=== PATIENT | female | born 1935 | race Caucasian/White ===

== ENCOUNTER 2018-05-02 16:08 | Observation (INO) | payer OTHER ==
[~2018-05-02] VITALS: Ht 149.9 cm; Wt 61.7 kg
[2018-05-02] MEDS ORDERED: MORPHINE SULFATE INJ 4 MG/ML INJ IV STA (16:16)
[2018-05-02] MEDS ORDERED: ONDANSETRON HCL INJ 2 MG/ML VIAL IV STA (16:16)
[2018-05-02] MEDS ORDERED: TETANUS/DIPHTHERIA TOX ADULT 0.5 ML SYR IM ONE (17:00)
[2018-05-02 17:14] LABS: BASOPHILS # (AUTO) 0.1 (0.0-0.1); BASOPHILS % 0.9 % (0.0-1.0); EOSINOPHILS # (AUTO) 0.3 (0.0-0.4); EOSINOPHILS % 2.4 % (0.0-6.0); LYMPHOCYTES # (AUTO) 3.1 (1.0-3.2); LYMPHOCYTES % 27.2 % (18.0-39.1); MEAN CORPUSCULAR HEMOGLOBIN 29.4 pg (28-32); MEAN CORPUSCULAR HGB CONC 31.6 g/dL (31-35); MEAN CORPUSCULAR VOLUME 93.1 fL (81-99); MONOCYTES # (AUTO) 0.9 (0.2-0.8); MONOCYTES % 7.5 % (4.4-11.3); NEUTROPHILS # (AUTO) 7.1 (2.1-6.9); NEUTROPHILS % 61.5 % (38.7-80.0); PLATELET COUNT 248 x10e3/uL (140-360); RED BLOOD COUNT 4.08 x10e6/uL (3.6-5.1); RED CELL DISTRIBUTION WIDTH 12.8 % (11.7-14.4)
[2018-05-02 17:20] LABS: INR 0.95; PARTIAL THROMBOPLASTIN TIME 26.4 seconds (23.8-35.5); PROTHROMBIN TIME 13.5 seconds (11.9-14.5)
[2018-05-02 17:26] LABS: ALBUMIN 3.5 g/dL (3.5-5.0); ALBUMIN/GLOBULIN RATIO 0.9 (0.8-2.0); ANION GAP 17.5 mmol/L (8-16); CALCIUM 9.2 mg/dL (8.4-10.2); CREATININE, SERUM 0.89 mg/dL (0.57-1.11); POTASSIUM 4.5 mmol/L (3.5-5.1)
[2018-05-02] MEDS ORDERED: MORPHINE SULFATE 2 MG/ML SYR IV ONE (17:30)
--- NOTE | 2018-05-02 18:18 | Diagnostic Imaging Report ---
KNEE LEFT THREE VIEWS - 3 views HISTORY: Pain. COMPARISON: None available. FINDINGS: Bones: No acute displaced fracture. Osseous alignment is within normal limits. Joints: Moderate tricompartmental degenerative changes with joint space narrowing and osteophytic spurring. Bilateral meniscal calcification. Soft tissues: The soft tissues appear unremarkable. IMPRESSION: Moderate degenerative changes in the left knee. Signed by: Dr. Umer Dangelo M.D. on 05/02/2018 6:15 PM
--- NOTE | 2018-05-02 18:18 | Diagnostic Imaging Report ---
LOWER LEG LEFT - 2 views HISTORY: Pain. COMPARISON: None available. FINDINGS: Bones: No acute displaced fracture. Osseous alignment is within normal limits. Joints: Mild to moderate degenerative changes in the knee. Soft tissues: Mild soft tissue swelling of the left leg. IMPRESSION: 1. Mild soft tissue swelling of the left leg. 2. No fractures. 3. Moderate degenerative changes of the left knee. Signed by: Dr. Umer Dangelo M.D. on 05/02/2018 6:15 PM
--- NOTE | 2018-05-02 18:19 | Diagnostic Imaging Report ---
HAND 3+ VIEWS LEFT - 3 views HISTORY: Pain. COMPARISON: None available. FINDINGS: Bones: No acute displaced fracture. Osseous alignment is within normal limits. Joints: Severe degenerative changes in the DIP and PIP joints. Moderate to severe degenerative changes in the first MCP joint. Mild to moderate degenerative changes in the MCP joints. Moderate degenerative changes in the radiocarpal joint. Moderate degenerative changes in the carpal carpal joints. Severe degenerative changes in the first carpometacarpal joint. Soft tissues: The soft tissues appear unremarkable. 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 Signed by: Dr. Umer Dangelo M.D. on 05/02/2018 6:16 PM
--- NOTE | 2018-05-02 18:20 | Diagnostic Imaging Report ---
HAND 3+ VIEWS RIGHT - 3 views HISTORY: Pain. COMPARISON: None available. FINDINGS: Bones: No acute displaced fracture. Multifocal subluxations related degenerative changes. Joints: Severe degenerative changes in the DIP and PIP joints and the first MCP joint. Moderate degenerative changes in the MCP joints. Moderate degenerative changes in the radiocarpal and carpocarpal joints. Severe degenerative changes at the first carpometacarpal joint. Soft tissues: The soft tissues appear unremarkable. IMPRESSION: Severe degenerative changes in the right hand as described above. Signed by: Dr. Umer Dangelo M.D. on 05/02/2018 6:17 PM
--- NOTE | 2018-05-02 18:22 | Diagnostic Imaging Report ---
ELBOW LEFT COMPLETE - 2 views HISTORY: Pain. COMPARISON: None available. FINDINGS: Bones: No acute displaced fracture. Osseous alignment is within normal limits. Calcification adjacent to the lateral epicondyle. Joints: The joint spaces are well-maintained. Soft tissues: Diffuse swelling of the left upper arm. IMPRESSION: 1. No acute radiographic abnormality. 2. Calcific lateral epicondylitis. 3. Diffuse swelling of the left upper arm. Correlate for contusion. Signed by: Dr. Umer Dangelo M.D. on 05/02/2018 6:19 PM
--- NOTE | 2018-05-02 18:23 | Diagnostic Imaging Report ---
PELVIS AP 1-2 VIEWS - 1 views HISTORY: Pain. COMPARISON: None available. FINDINGS: Bones: No acute displaced fracture. Osseous alignment is within normal limits. Joints: Severe degenerative changes of bilateral SI joints with fusion. Partially visualized lower lumbar spine with marked severe degenerative changes. Moderate degenerative changes in bilateral hip joints. Pubis symphysis is not well visualized and likely represents vision. Soft tissues: The soft tissues appear unremarkable. Large amount of stool in the rectum and sigmoid colon. IMPRESSION: 1. Severe degenerative changes in the pelvis with bony fusion. 2. Moderate changes in bilateral hips. Signed by: Dr. Umer Dangelo M.D. on 05/02/2018 6:20 PM
--- NOTE | 2018-05-02 18:48 | Diagnostic Imaging Report ---
History:Fall, hit the head Comparison studies:None Technique: Axial images were obtained from the skull base to the vertex. Coronal and sagittal images reconstructed from the axial data. Intravenous contrast: None Dose modulation, iterative reconstruction, and/or weight based adjustment of the mA/kV was utilized to reduce the radiation dose to as low as reasonably achievable. Findings: Scalp/skull: No abnormalities. Extra-axial spaces: No masses. No fluid collections. Brain sulci: Mildly prominent. Ventricles: Mild compensatory dilatation. No hydrocephalus. Parenchyma: Scattered hypodensities in the supratentorial white matter are small vessel ischemic changes. Chronic. No masses, hemorrhage, acute or chronic cortical vascular insults. Sellar/suprasellar region: No abnormalities. Craniocervical junction: Patent foramen magnum. No Chiari one malformation. Incidental findings: Atherosclerotic calcifications in the carotid siphons . Bilateral cataract surgery changes. Impression: No acute abnormalities. Chronic findings: 1. Mild generalized volume loss. 2. Mild to moderate supratentorial white matter small vessel ischemic changes. Signed by: DR Sivakumar Dhillon M.D. on 05/02/2018 6:45 PM
--- NOTE | 2018-05-02 19:17 | Diagnostic Imaging Report ---
History: Fall, hit head Comparison studies: None Technique: Axial images were obtained through the cervical region.. Coronal and sagittal images reconstructed from the axial data.. Intravenous contrast: None Findings: Fractures: None. Soft tissues: No gross abnormalities. Atlantoaxial articulation: Degenerative changes without acute abnormality. Alignment: Normal lordosis. No scoliosis. Cervicomedullary junction: No abnormalities. The foramen magnum is patent. Vertebrae: No infection or neoplasm. Degenerative changes: Obliterated intervertebral disc and endplate sclerotic changes from C3 through C6. Posterior disc osteophyte complexes at C3-4-5 and C5-results in mild canal stenosis. Bilateral uncinate process hypertrophy and facet hypertrophy results in moderate bilateral foraminal narrowing at C4-5 and C5-6. IMPRESSION: 1. No acute cervical spine abnormalities. 2. Cannot exclude ligament, spinal cord and or vascular abnormalities on the basis of this examination. Signed by: DR Sivakumar hDillon M.D. on 05/02/2018 7:14 PM
[2018-05-02] MEDS ORDERED: ONDANSETRON HCL INJ 2 MG/ML VIAL IV PRN (21:45)
[2018-05-02] MEDS ORDERED: MORPHINE SULFATE 2 MG/ML SYR IV PRN (21:45)
[2018-05-02] MEDS: ACETAMINOPHEN 325 MG TAB PO SCH (22:00)
[2018-05-02 22:40] VITALS: BP 121/59
[2018-05-03] VITALS (8 sets, daily range): BP systolic 109–167; BP diastolic 53–68
[2018-05-03] MEDS ORDERED: LISINOPRIL10 MG PO (04:02)
[2018-05-03] MEDS: ACETAMINOPHEN 325 MG TAB PO SCH (06:32)
[2018-05-03] MEDS: CEPHALEXIN 500 MG CAP PO SCH ×3 (08:53→18:20)
[2018-05-03] MEDS ORDERED: ACETAMINOPHEN 325 MG TAB PO PRN (09:00)
[2018-05-03] MEDS ORDERED: ONDANSETRON HCL INJ 2 MG/ML VIAL IV PRN (09:00)
--- NOTE | 2018-05-03 11:54 | History and Physical ---
PCP: Dr. Snow Steen CHIEF COMPLAINT: Status post fall on the left side with hematoma to the left leg and left upper extremity. HISTORY: Patient is an 83-year-old female who was carrying groceries, tripped and fell to her left side. Multiple imaging done including a brain CT, cervical spine CT, elbow x-rays, hand x-ray, knee x-ray, lower extremity x-rays, and shows there is no signs of fractures. The patient states that she does have a hematoma to the left lower extremity below the knee area and hematoma above the elbow area. The patient is stable. She is comfortable. Pain controlled. Observation. She does have some blistering to the left lower extremity along the avery area. The patient is stable. PAST MEDICAL HISTORY: The patient has hypertension. PAST SURGICAL HISTORY: Noncontributory. SOCIAL HISTORY: The patient does not smoke or use alcohol. No recreational drugs. She lives with her grandchildren. ALLERGIES: CODEINE. HOME MEDICATIONS: Lisinopril. REVIEW OF SYSTEMS: Left lower extremity pain. Left upper extremity pain. PHYSICAL EXAMINATION VITAL SIGNS: Temperature is 97, blood pressure is 109/53, pulse rate 75, respirations 18. GENERAL: The patient is not in acute distress. He is awake. HEENT: Normocephalic, atraumatic and anicteric. NECK: Supple grossly. PULMONARY: Diminished breath without any wheezing or rales. CARDIOVASCULAR: S1 and S2. Regular rate and rhythm. ABDOMEN: Soft. Positive bowel sounds. Grossly nontender and no distention. EXTREMITIES: Left lower extremity swelling below the knee area and also some blistering. Hematoma. Left upper extremity hematoma above the elbow area. There is no sign of immediate infection. NEUROLOGIC: No focal deficit. LABORATORY: Sodium 137, potassium 4.5, chloride 102, bicarb 22, BUN 17, creatinine 0.9, glucose is 130. WBC 11.5, hemoglobin 12, hematocrit 38, and platelets is 248,000. IMPRESSION 1. Status post fall with left lower extremity hematoma and left upper extremity hematoma. 2. Pain. 3. Left lower extremity blister. PLAN: Continue to observe the patient. Place O2. Give the patient Ceftin 500 mg 3 times a day in anticipation that there may be an infection. The patient is stable. She will remain in observation. Obtain home health. Will send the patient home within 24-48 hours. Job#: [id number] RI
[2018-05-04] VITALS: BP 123/69
[2018-05-04] MEDS: CEPHALEXIN 500 MG CAP PO SCH ×2 (02:19→09:00)
[2018-05-04 04:00] VITALS: BP 146/63
[2018-05-04 07:51] VITALS: BP 166/68
[2018-05-04 08:30] VITALS: BP 166/68
[2018-05-04] MEDS ORDERED: LISINOPRIL 10 MG TAB PO NR (08:45)
[2018-05-04] MEDS ORDERED: KEFLEX500 MG PO (09:38)
[2018-05-04] MEDS ORDERED: MOBIC7.5 MG PO (09:39)
[2018-05-04] MEDS ORDERED: ZOFRAN ODT4 MG SL (09:41)
--- NOTE | 2018-05-04 16:42 | Discharge Summary ---
PRIMARY CARE PHYSICIAN: Dr. Snow Steen. FINAL DIAGNOSES: 1. Status post accidental fall. 2. Left leg hematoma below the knee area and left upper extremity hematoma on falling on the left side. 3. Baseline hypertension. 4. Pain much improved. SUMMARY: This is an 83-year-old female apparently accidentally fell carrying her groceries. She suffered some bruises and hematoma to the left lower extremity below the knee area mostly in the anterior leg area along with the left upper extremity above the elbow. X-ray and imaging negative for any fractures. The patient is stable. There is some blister to the lower extremity. The patient started on Keflex. Pain medication. The patient is stable and discharged home today with the following medications: Keflex 500 mg t.i.d. for 7 days. Mobic 7.5 mg b.i.d. for pain. Zofran ODT 4 mg sublingual q.4 hours as needed for nausea and vomiting. Patient is stable and discharged home today. Follow up with primary care physician next week. Job#: [id number]
== END 2018-05-04 10:43 | disposition home health service (06) ==
LOC: ER 16:08 → ERHOLD 21:55 → MED/SURG 22:35
PROVIDERS: ADMIT Internal Medicine; ATTEND Internal Medicine
DX: S80.12XA Contusion of left lower leg, initial encounter (principal); S50.01XA Contusion of right elbow, initial encounter; S00.83XA Contusion of other part of head, initial encounter; S71.132A Puncture wound without foreign body, left thigh, initial encounter; S50.312A Abrasion of left elbow, initial encounter; S60.511A Abrasion of right hand, initial encounter; W01.0XXA Fall on same level from slipping, tripping and stumbling without subsequent striking against object, initial encounter; Y93.01 Activity, walking, marching and hiking; Y92.018 Other place in single-family (private) house as the place of occurrence of the external cause; I10 Essential (primary) hypertension
CPT/HCPCS: 36415; 70450; 72125; 72170; 73080; 73130 ×2; 73562; 73590; 80053; 85025; 85610; 85730; 90471; 90714; 97116; 97161; 99284; G0378 ×3; G8978; G8979; G8980; J2270 ×3; J2405 ×2

== ENCOUNTER 2018-11-19 13:57 | Emergency (ER) | payer OTHER ==
[~2018-11-19] VITALS: Ht 149.9 cm; Wt 61.7 kg
[~2018-11-19 13:57] MED LIST: KEFLEX500 MG PO; LISINOPRIL10 MG PO; MOBIC7.5 MG PO; ZOFRAN ODT4 MG SL
--- OUTSIDE RECORDS SUMMARY | 2018-11-19 14:01 | XMS REPORT | Summary of Care ---
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 terminal computer operator (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) 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 therapy (Final) - Diverticulosis of large intestine without perforation or abscess without bleedin g (Final) - 03/31/18 Left lower quadrant pain (Final) - Nausea (Final) - Type 2 diabetes mellitus without complications (Final) - Essential (primary) hypertension (Final) - Unspecified osteoarthritis, unspecified site (Final) - Scoliosis, unspecified (Final) - Abdominal aortic aneurysm, without rupture (Final) - Low back pain (Final) - Other chronic pain (Final) - Major depressive disorder, single episode, unspecified (Final) - Gastro-esophageal reflux disease without esophagitis (Final) - Discharge Disposition: Home or Self Care Attending Physician: Bria Soares MD Vital Signs 1 2 3 Most recent to oldest [Reference Range]: 149.86 cm (03/25/18 3:48 PM) Height 98.6 DegF (03/25/18 10:57 PM) 98.9 DegF (03/25/18 9:40 PM) 98.5 DegF (03/25/18 3:48 PM) Temperature Oral [96.4-99.1 DegF] 151/68 mmHg *HI* (03/25/18 11:41 PM) 173/66 mmHg *HI* (03/25/18 11:40 PM) 198/76 mmHg *HI* (03/25/18 10:57 PM) Blood Pressure [90-140/60-90 mmHg] 20 BRMIN (03/25/18 11:41 PM) 18 BRMIN (03/25/18 11:40 PM) 20 BRMIN (03/25/18 10:57 PM) Respiratory Rate [14-20 BRMIN] 80 bpm (03/25/18 11:41 PM) 74 bpm (03/25/18 11:40 PM) 74 bpm (03/25/18 10:57 PM) Peripheral Pulse Rate [60-100 bpm] 59.091 kg (03/25/18 3:48 PM) Weight 26.31 m2 (03/25/18 3:48 PM) Body Mass Index Problem List Condition Effective Dates Status Health Status Informant Acid Active reflux(Confirmed) Anemia(Confirmed) Active Anxiety(Confirmed) Active Arthritis(Confirmed) Active Breast Resolved cancer(Confirmed) Degenerative disc Active disease(Confirmed) Depression(Confirmed Active ) Diabetes Active mellitus(Confirmed) HTN Resolved (hypertension)(Confi rmed) Scoliosis(Confirmed) Active Allergies, Adverse Reactions, Alerts Substance Reaction Severity Status sulfa drugs Active codeine Active Talwin Active Medications hydrALAZINE 5 mg, 0.25 mL, Route: IV, Drug form: INJ, ONCE, Dosing Weight 59.091, kg, Start date: 03/25/18 23:21:00 CDT, Stop date: 03/25/18 23:21:00 CDT Notes: (Same as: Apresoline)Push over 5 minutes Start Date: 03/25/18 Stop Date: 03/26/18 Status: Completed hydrALAZINE 5 mg, 0.25 mL, Route: IV, Drug form: INJ, ONCE, Dosing Weight 59.091, kg, Start date: 03/25/18 22:30:00 CDT, Stop date: 03/25/18 22:30:00 CDT Notes: (Same as: Apresoline)Push over 5 minutes Start Date: 03/25/18 Stop Date: 03/25/18 Status: Completed Motrin 600 mg, Route: PO, Drug form: TAB, ONCE, Dosing Weight 59.091, kg, Priority: STA T, Start date: 03/25/18 23:01:00 CDT, Stop date: 03/25/18 23:01:00 CDT Start Date: 03/25/18 Stop Date: 03/25/18 Status: Completed Saline Flush 0.9% 10 mL, Route: IVP, Drug Form: INJ, Dosing Weight 58.182, kg, PRN, PRN Line Flush , Start date: 03/25/18 15:52:00 CDT, Duration: 30 day, Stop date: 04/24/18 15:51 :00 CDT Notes: (Same as: BD Posiflush) Start Date: 03/25/18 Stop Date: 03/26/18 Status: Discontinued Tylenol 650 mg, Route: PO, ONCE, Dosing Weight 59.091, kg, Start date: 03/25/18 23:02:00 CDT, Stop date: 03/25/18 23:02:00 CDT Start Date: 03/25/18 Stop Date: 03/25/18 Status: Completed Results ELECTROLYTES Most recent to 1 oldest [Reference Range]: Sodium Lvl [135-145 142 mEq/L mEq/L] (03/25/18 4:11 PM) Potassium Lvl 3.9 mEq/L [3.5-5.1 mEq/L] (03/25/18 4:11 PM) Chloride Lvl [95-109 102 mEq/L mEq/L] (03/25/18 4:11 PM) CO2 [24-32 mEq/L] 32 mEq/L (03/25/18 4:11 PM) AGAP [10.0-20.0 11.9 mEq/L mEq/L] (03/25/18 4:11 PM) CHEM PANEL Most recent to 1 oldest [Reference Range]: Creatinine Lvl 1.06 mg/dL [0.50-1.40 mg/dL] (03/25/18 4:11 PM) eGFR 48 mL/min/1.73m2 1 *NA* (03/25/18 4:11 PM) BUN [7-22 mg/dL] 14 mg/dL (03/25/18 4:11 PM) B/C Ratio [6-25] 13 (03/25/18 4:11 PM) Glucose Lvl [70-99 146 mg/dL mg/dL] *HI* (03/25/18 4:11 PM) Total Protein 7.9 g/dL [6.4-8.4 g/dL] (03/25/18 4:11 PM) Albumin Lvl [3.5-5.0 3.5 g/dL g/dL] (03/25/18 4:11 PM) Globulin [2.7-4.2 4.4 g/dL g/dL] *HI* (03/25/18 4:11 PM) A/G Ratio [0.7-1.6] 0.8 (03/25/18 4:11 PM) Calcium Lvl 8.5 mg/dL [8.5-10.5 mg/dL] (03/25/18 4:11 PM) ALT [0-65 unit/L] 18 unit/L (03/25/18 4:11 PM) AST [0-37 unit/L] 20 unit/L (03/25/18 4:11 PM) Alk Phos [39-136 84 unit/L unit/L] (03/25/18 4:11 PM) Bili Total [0.2-1.3 0.4 mg/dL mg/dL] (03/25/18 4:11 PM) 1Result Comment: The eGFR is calculated using the CKD-EPI formula. In most young, healthy individuals the eGFR will be >90 mL/min/1.73m2. The eGFR declines with age. An eGFR of 60-89 may be normal in some populations, particularly the elderly, for whom the CKD-EPI formula has not been extensively validated. Use of the eGFR is not recommended in the following populations: Individuals with unstable creatinine concentrations, including patients and those with serious co-morbid conditions. Patients with extremes in muscle mass or diet. The data above are obtained from the National Kidney Disease Education Program ( NKDEP) which additionally recommends that when the eGFR is used in patients with extremes of body mass index for purposes of drug dosing, the eGFR should be mul tiplied by the estimated BMI. CARDIAC ENZYMES Most recent to 1 oldest [Reference Range]: Total CK [12-191 79 unit/L unit/L] (03/25/18 4:11 PM) Troponin-I <0.02 ng/mL [0.00-0.40 ng/mL] (03/25/18 4:11 PM) URINE AND STOOL Most recent to 1 oldest [Reference Range]: UA Turbidity [Clear] Clear (03/25/18 10:47 PM) UA Color [Yellow] Light Yellow (03/25/18 10:47 PM) UA pH [5.0-8.0] 7.0 (03/25/18 10:47 PM) UA Spec Grav <=1.005 [<=1.030] *NA* (03/25/18 10:47 PM) UA Glucose Negative [Negative] (03/25/18 10:47 PM) UA Blood [Negative] Moderate *ABN* (03/25/18 10:47 PM) UA Ketones Negative [Negative] *NA* (03/25/18 10:47 PM) UA Protein Negative [Negative] (03/25/18 10:47 PM) UA Urobilinogen 0.2 EU/dL [0.1-1.0 EU/dL] (03/25/18 10:47 PM) UA Bili [Negative] Negative *NA* (03/25/18 10:47 PM) UA Leuk Est Small [Negative] *ABN* (03/25/18 10:47 PM) UA Nitrite Negative [Negative] (03/25/18 10:47 PM) UA WBC [0-5 /HPF] <1 /HPF (03/25/18 10:47 PM) UA RBC [0-2 /HPF] 3 /HPF *HI* (03/25/18 10:47 PM) UA Sq Epi [Few /LPF] Occasional /LPF *NA* (03/25/18 10:47 PM) HEMATOLOGY Most recent to 1 oldest [Reference Range]: WBC [3.7-10.4 K/CMM] 9.4 K/CMM (03/25/18 4:11 PM) RBC [4.20-5.40 4.59 M/CMM M/CMM] (03/25/18 4:11 PM) Hgb [12.0-16.0 g/dL] 13.8 g/dL (03/25/18 4:11 PM) Hct [36.0-48.0 %] 41.7 % (03/25/18 4:11 PM) MCV [80.0-98.0 fL] 91.0 fL (03/25/18 4:11 PM) MCH [27.0-31.0 pg] 30.1 pg (03/25/18 4:11 PM) MCHC [32.0-36.0 33.1 g/dL g/dL] (03/25/18 4:11 PM) RDW [11.5-14.5 %] 14.0 % (03/25/18 4:11 PM) MPV [7.4-10.4 fL] 7.6 fL (03/25/18 4:11 PM) Platelet [133-450 202 K/CMM K/CMM] (03/25/18 4:11 PM) Segs [45.0-75.0 %] 64.9 % (03/25/18 4:11 PM) Lymphocytes 25.0 % [20.0-40.0 %] (03/25/18 4:11 PM) Monocytes [2.0-12.0 7.7 % %] (03/25/18 4:11 PM) Eosinophils [0.0-4.0 1.5 % %] (03/25/18 4:11 PM) Basophils [0.0-1.0 0.9 % %] (03/25/18 4:11 PM) Neutrophils # 6.1 K/CMM [1.5-8.1 K/CMM] (03/25/18 4:11 PM) Lymphocytes # 2.4 K/CMM [1.0-5.5 K/CMM] (03/25/18 4:11 PM) Monocytes # [0.0-0.8 0.7 K/CMM K/CMM] (03/25/18 4:11 PM) Eosinophils # 0.1 K/CMM [0.0-0.5 K/CMM] (03/25/18 4:11 PM) Basophils # [0.0-0.2 0.1 K/CMM K/CMM] (03/25/18 4:11 PM) Microbiology Reports TEST: Culture: Urine STATUS: Auth (Verified) BODY SITE: SOURCE: Urine, Clean Catch COLLECTED DATE/TIME: 03/25/18 10:47 PM FINAL REPORT 10,000 - 50,000 CFU/mL Skin Pita Immunizations Given and Recorded Vaccine Date Status Refusal Reason pneumococcal 23-valent vaccine 11/06/14 Given Procedures Procedure Date Related Diagnosis Body Site Status Abdominal hysterectomy Completed Bilateral radical mastectomy1 Completed Bunionectomy Completed Cholecystectomy Completed Partial shoulder replacement Completed 1right Social History Social History Type Response Alcohol Never Smoking Status Never smoker; Exposure to Tobacco Smoke None; Cigarette Smoking Last 365 Days No; Reg Smoking Cessation Counseling No entered on: 05/12/18 Assessment and Plan No data available for this section
--- OUTSIDE RECORDS SUMMARY | 2018-11-19 14:01 | XMS REPORT | Summary of Care ---
Author Author [facility] [place] Organization [facility] [place] Address Unknown Phone Unavailable Encounter HQ Keegan_gee(FIN) [id number] Date(s): 05/19/17 - 05/19/17 [facility] [place] [address] [place] [address] [phone] Discharge Disposition: Home or Self Care Attending Physician: Lisa Nielsen MD Vital Signs No data available for this section Problem List Condition Effective Dates Status Health Status Informant Acid Active reflux(Confirmed) Anemia(Confirmed) Active Anxiety(Confirmed) Active Arthritis(Confirmed) Active Breast Resolved cancer(Confirmed) Degenerative disc Active disease(Confirmed) Depression(Confirmed Active ) Diabetes Active mellitus(Confirmed) HTN Resolved (hypertension)(Confi rmed) Scoliosis(Confirmed) Active Allergies, Adverse Reactions, Alerts Substance Reaction Severity Status codeine Active sulfa drugs Active Talwin Active Medications No data available for this section Results No data available for this section Immunizations Given and Recorded Vaccine Date Status Refusal Reason pneumococcal 23-valent vaccine 11/06/14 Given Procedures Procedure Date Related Diagnosis Body Site Abdominal hysterectomy Bilateral radical mastectomy1 Bunionectomy Cholecystectomy Partial shoulder replacement 1right Social History Social History Type Response Alcohol Never Smoking Status Never smoker; Exposure to Tobacco Smoke None; Cigarette Smoking Last 365 Days No; Reg Smoking Cessation Counseling No Assessment and Plan No data available for this section
--- OUTSIDE RECORDS SUMMARY | 2018-11-19 14:01 | XMS REPORT | Summary of Care ---
Author Author [facility] Organization [facility] Address Unknown Phone Unavailable Encounter PEMA Yousif(ANAMIKA) [id number] Date(s): 04/13/15 - 05/02/15 [facility] [address] [place] [address]- Discharge Disposition: Home Attending Physician: Kaitlynn Auguste MD Referring Physician: Kaitlynn Auguste MD Vital Signs Most recent to 1 2 oldest [Reference Range]: Height 157.4 cm 157.4 cm (04/12/15 3:30 PM) (04/10/15 1:24 PM) Most recent to 1 2 oldest [Reference Range]: Temperature Oral 98.2 DegF [96.4-99.1 DegF] (04/13/15 2:00 PM) Most recent to 1 2 oldest [Reference Range]: Blood Pressure 146/80 mmHg [90-140/60-90 mmHg] *HI* (04/13/15 2:00 PM) Most recent to 1 2 oldest [Reference Range]: Respiratory Rate 18 BRMIN [14-20 BRMIN] (04/13/15 2:00 PM) Most recent to 1 2 oldest [Reference Range]: Peripheral Pulse 72 bpm Rate [60-100 bpm] (04/13/15 2:00 PM) Most recent to 1 2 oldest [Reference Range]: Weight 57.7 kg 57.7 kg (04/12/15 3:30 PM) (04/10/15 1:24 PM) Most recent to 1 2 oldest [Reference Range]: Body Mass Index 23.29 m2 23.29 m2 (04/12/15 3:30 PM) (04/10/15 1:24 PM) Problem List Condition Effective Dates Status Health Status Informant Acid Active reflux(Confirmed) Arthritis(Confirmed) Active Breast Resolved cancer(Confirmed) Degenerative disc Active disease(Confirmed) Depression(Confirmed Active ) Scoliosis(Confirmed) Active Allergies, Adverse Reactions, Alerts Substance Reaction Severity Status codeine Active sulfa drugs Active Talwin Active Medications Prolia 60 mg, 1 mL, Route: SUB-Q, Drug form: SOLN, ONCALL, Start date: 04/13/15 11:30:0 0, Duration: 1 day, Stop date: 04/14/15 11:29:00 Notes: Same as: ProliaNon Formulary MEDICATION WASTE Product Size: 60 m gProduct Wasted: ___ mg Start Date: 04/13/15 Stop Date: 04/13/15 Status: Completed Results No data available for this section Immunizations Vaccine Date Refusal Reason pneumococcal 23-valent vaccine 11/06/14 Procedures Procedure Date Related Diagnosis Body Site Abdominal hysterectomy Bilateral radical mastectomy1 Bunionectomy Cholecystectomy Partial shoulder replacement 1right Social History Social History Type Response Smoking Status Never smoker; Exposure to Tobacco Smoke None; Cigarette Smoking Last 365 Days No; Reg Smoking Cessation Counseling No Assessment and Plan No data available for this section
--- OUTSIDE RECORDS SUMMARY | 2018-11-19 14:01 | XMS REPORT | Summary of Care ---
Author Organization Unknown Address Unknown Phone Unavailable Encounter [facility] Vidyar_gee(FIN) [id number] Date(s): 10/18/14 - 10/18/14 [facility] [place] [address] [place], [place] [address] [phone] Discharge Disposition: Home Physician Attending: Kaitlynn Auguste MD Vital Signs No data available for this section Problem List Condition Effective Dates Status Health Status Informant Acid Active reflux(Confirmed) Arthritis(Confirmed) Resolved Breast Resolved cancer(Confirmed) Degenerative disc Active disease(Confirmed) Depression(Confirmed Active ) Scoliosis(Confirmed) Resolved Allergies, Adverse Reactions, Alerts Substance Reaction Severity Status codeine Active sulfa drugs Active Talwin Active Medications No data available for this section Results No data available for this section Immunizations No data available for this section Procedures No data available for this section Social History Social History Type Response Smoking Status Never smoker; Exposure to Tobacco Smoke None; Cigarette Smoking Last 365 Days No; Reg Smoking Cessation Counseling No Assessment and Plan No data available for this section
--- OUTSIDE RECORDS SUMMARY | 2018-11-19 14:01 | XMS REPORT | Summary of Care ---
Author Organization Unknown Address Unknown Phone Unavailable Encounter HQ Benja(ANAMIKA) [id number] Date(s): 11/05/14 - 11/12/14 [facility] [address] [place] [address]- [phone] Discharge Diagnosis: Acute hip pain Discharge Diagnosis: Acute back pain Discharge Disposition: Home Physician Attending: Gayathri Medina MD Physician Admitting: Gayathri Medina MD Vital Signs 1 2 3 Most recent to oldest [Reference Range]: 157.48 cm (11/06/14 5:08 PM) 157.48 cm (11/05/14 8:22 PM) Height 98.5 DegF (11/12/14 7:55 AM) 98.5 DegF (11/12/14 4:00 AM) 99 DegF (11/12/14 12:00 AM) Temperature Oral [96.4-99.1 DegF] 142/81 mmHg *HI* (11/12/14 7:55 AM) 150/80 mmHg *HI* (11/12/14 4:00 AM) 105/68 mmHg (11/12/14 12:00 AM) Blood Pressure [90-140/60-90 mmHg] 18 BRMIN (11/12/14 7:55 AM) 18 BRMIN (11/12/14 4:00 AM) 18 BRMIN (11/12/14 12:00 AM) Respiratory Rate [14-20 BRMIN] 79 bpm (11/12/14 7:55 AM) 74 bpm (11/12/14 4:00 AM) 68 bpm (11/12/14 12:00 AM) Peripheral Pulse Rate [60-100 bpm] 58.352 kg (11/06/14 5:08 PM) 57.727 kg (11/05/14 8:22 PM) Weight 23.53 m2 (11/06/14 5:08 PM) 23.28 m2 (11/05/14 8:22 PM) Body Mass Index Problem List Condition Effective Dates Status Health Status Informant Acid Active reflux(Confirmed) Arthritis(Confirmed) Active Breast Resolved cancer(Confirmed) Degenerative disc Active disease(Confirmed) Depression(Confirmed Active ) Scoliosis(Confirmed) Active Allergies, Adverse Reactions, Alerts Substance Reaction Severity Status codeine Active sulfa drugs Active Talwin Active Medications acetaminophen-hydrocodone 325 mg-10 mg oral tablet 1 tab, Route: PO, Dosing Weight 57.727, kg, ONCE, STAT, Start date: 11/06/14 0:3 9:00, Stop date: 11/06/14 0:39:00 Start Date: 11/06/14 Stop Date: 11/06/14 Status: Completed ALPRAZOLam 0.25 mg, 1 tab, Route: PO, Drug form: TAB, Bedtime, Dosing Weight 57.727, kg, CA N as needed for anxiety, Start date: 11/06/14 8:56:00, Duration: 30 day, Stop da te: 12/06/14 8:55:00 Notes: With food or milk(Same as: Xanax) Start Date: 11/06/14 Stop Date: 11/12/14 Status: Discontinued Ancef 1 gm, Route: IVPB, ONCE, Dosing Weight 58.352, kg, Start date: 11/10/14 12:05:00 , Duration: 1 doses or times, Stop date: 11/10/14 12:05:00 Start Date: 11/10/14 Stop Date: 11/10/14 Status: Completed CeleBREX 100 mg, 1 cap, Route: PO, Drug form: CAP, Daily, Dosing Weight 57.727, kg, Start date: 11/06/14 9:00:00, Duration: 30 day, Stop date: 12/05/14 9:00:00 Notes: NSAID. Please check indication. Not for seizure. (Same As: CeleBREX) Start Date: 11/06/14 Stop Date: 11/12/14 Status: Discontinued CeleBREX 100 mg oral capsule 100 mg=1 cap, PO, Daily, # 180 cap, 0 Refill(s) Start Date: 11/06/14 Status: Ordered diphenhydrAMINE 12.5 mg, Route: IVP, Drug form: INJ, Q6H, Dosing Weight 58.352, kg, PRN Itching, Start date: 11/10/14 12:36:00, Duration: 30 day, Stop date: 12/10/14 12:35:00 Start Date: 11/10/14 Stop Date: 11/10/14 Status: Discontinued enoxaparin 40 mg, 0.4 mL, Route: SUB-Q, Drug form: INJ, [id number], Dosing Weight 57.727, kg, Start date: 11/06/14 9:00:00, Duration: 30 day, Stop date: 12/05/14 9:00:00 Notes: (Same as: Lovenox) Start Date: 11/06/14 Stop Date: 11/12/14 Status: Discontinued escitalopram 10 mg, 1 tab, Route: PO, Drug form: TAB, Daily, Dosing Weight 57.727, kg, Start date: 11/06/14 9:00:00, Duration: 30 day, Stop date: 12/05/14 9:00:00 Notes: (Same as: Lexapro) Start Date: 11/06/14 Stop Date: 11/12/14 Status: Discontinued fentaNYL 25 microgram, Route: IV, ONCE, Dosing Weight 58.352, kg, Start date: 11/10/14 11 :35:00, Stop date: 11/10/14 11:35:00 Start Date: 11/10/14 Stop Date: 11/10/14 Status: Completed fentaNYL 50 microgram, Route: IVP, Q5Min, Dosing Weight 58.352, kg, PRN Pain Score 7-10, Start date: 11/10/14 12:36:00, Duration: 2 doses or times, Stop date: Limited # of times Start Date: 11/10/14 Stop Date: 11/10/14 Status: Discontinued fentaNYL 25 microgram, Route: IVP, Q5Min, Dosing Weight 58.352, kg, PRN Pain Score 4-6, S tart date: 11/10/14 12:36:00, Duration: 4 doses or times, Stop date: Limited # o f times Start Date: 11/10/14 Stop Date: 11/10/14 Status: Discontinued flumazenil 0.2 mg, Route: IVP, PRN, Dosing Weight 58.352, kg, PRN Benzodiazepine Reversal, Initial dose, Start date: 11/10/14 12:36:00, Duration: 30 day, Stop date: 12:35:00 Start Date: 11/10/14 Stop Date: 11/10/14 Status: Discontinued glycopyrrolate 0.2 mg, Route: IVP, Q5Min, Dosing Weight 58.352, kg, PRN Bradycardia, Start date : 11/10/14 12:36:00, Duration: 3 doses or times, Stop date: Limited # of times Start Date: 11/10/14 Stop Date: 11/10/14 Status: Discontinued hydrALAZINE 10 mg, Route: IVP, Q20Min, Dosing Weight 58.352, kg, PRN Elevated BP, Start date : 11/10/14 12:36:00, Duration: 2 doses or times, Stop date: Limited # of times Start Date: 11/10/14 Stop Date: 11/10/14 Status: Discontinued hydromorphone 0.5 mg, Route: IVP, Q5Min, Dosing Weight 58.352, kg, PRN Pain Score 7-10, Start date: 11/10/14 12:36:00, Duration: 4 doses or times, Stop date: Limited # of etta es Start Date: 11/10/14 Stop Date: 11/10/14 Status: Discontinued hydrOXYzine 25 mg, 1 cap, Route: PO, Drug form: CAP, Q6H, Dosing Weight 58.352, kg, PRN Itch ing, Start date: 11/07/14 12:47:00, Duration: 30 day, Stop date: 12/07/14 12:46: 00 Notes: (Same as: Vistaril) Start Date: 11/07/14 Stop Date: 11/12/14 Status: Discontinued ketOROLAC 30 mg, Route: IVP, ONCE, Dosing Weight 58.352, kg, Start date: 11/10/14 12:36:00 , Duration: 1 doses or times, Stop date: 11/10/14 12:36:00 Start Date: 11/10/14 Stop Date: 11/10/14 Status: Discontinued Lactated Ringers Injection IV 1000 mL 1,000 mL, Rate: 25 ml/hr, Infuse over: 40 hr, Route: IV, Dosing Weight 58.352 kg , Total Volume: 1,000, Start date: 11/10/14 11:36:00, Duration: 30 day, Stop kathryn e: 12/10/14 11:35:00 Start Date: 11/10/14 Stop Date: 11/10/14 Status: Discontinued lactulose 10 g/15 mL oral syrup 10 gm, 15 mL, Route: PO, Drug Form: SYRP, Dosing Weight 58.352, kg, BID, PRN as needed for constipation, Start date: 11/11/14 15:34:00, Duration: 30 day, Stop d ate: 12/11/14 15:33:00 Notes: (Same as:Chronulac) Start Date: 11/11/14 Stop Date: 11/12/14 Status: Discontinued meperidine 12.5 mg, Route: IVP, Q30Min, Dosing Weight 58.352, kg, PRN Other -See Comment, F or shivering, Start date: 11/10/14 12:36:00, Duration: 2 doses or times, Stop da te: Limited # of times Start Date: 11/10/14 Stop Date: 11/10/14 Status: Discontinued metoprolol 1 mg, Route: IVP, Q5Min, Dosing Weight 58.352, kg, PRN Other -See Comment, Start date: 11/10/14 12:36:00, Duration: 5 doses or times, Stop date: Limited # of ti mes Start Date: 11/10/14 Stop Date: 11/10/14 Status: Discontinued MiraLax 17 gm, 1 pkt, Route: PO, Drug form: PWDR, Daily, Dosing Weight 58.352, kg, Start date: 11/10/14 9:00:00, Duration: 30 day, Stop date: 12/09/14 9:00:00 Notes: Dissolve in 8 oz of water or juice.(Same as: Miralax) Start Date: 11/10/14 Stop Date: 11/12/14 Status: Discontinued morphine Sulfate 1 mg, 0.5 mL, Route: IV, Drug form: INJ, Q3H, Dosing Weight 58.352, kg, PRN Pain Score 6-10, Start date: 11/08/14 22:10:00, Duration: 30 day, Stop date: 12/08/14 22:09:00 Notes: (Same as:MORPhine Sulfate) Start Date: 11/08/14 Stop Date: 11/12/14 Status: Discontinued morphine Sulfate 1 mg, 0.5 mL, Route: IV, Drug form: INJ, Q3H, Dosing Weight 58.352, kg, Start da te: 11/08/14 23:00:00, Duration: 30 day, Stop date: 12/08/14 20:00:00 Notes: (Same as:MORPhine Sulfate) Start Date: 11/08/14 Stop Date: 11/08/14 Status: Discontinued morphine Sulfate 6 mg, Route: IVP, Drug form: INJ, ONCE, Dosing Weight 57.727, kg, Priority: STAT , Start date: 11/05/14 21:32:00, Stop date: 11/05/14 21:32:00 Start Date: 11/05/14 Stop Date: 11/05/14 Status: Completed morphine Sulfate 4 mg, Route: IVP, Drug form: INJ, ONCE, Dosing Weight 57.727, kg, Priority: STAT , Start date: 11/06/14 1:56:00, Stop date: 11/06/14 1:56:00 Start Date: 11/06/14 Stop Date: 11/06/14 Status: Completed morphine Sulfate 4 mg, Route: IVP, Q5Min, Dosing Weight 58.352, kg, PRN Pain Score 7-10, Start da te: 11/10/14 12:36:00, Duration: 3 doses or times, Stop date: Limited # of times Start Date: 11/10/14 Stop Date: 11/10/14 Status: Discontinued morphine Sulfate 2 mg, Route: IVP, Q5Min, Dosing Weight 58.352, kg, PRN Pain Score 4-6, Start kathryn e: 11/10/14 12:36:00, Duration: 5 doses or times, Stop date: Limited # of times Start Date: 11/10/14 Stop Date: 11/10/14 Status: Discontinued morphine Sulfate 6 mg, 3 mL, Route: IVP, Drug form: INJ, Q4Hnow, Dosing Weight 57.727, kg, Priori ty: STAT, Start date: 11/06/14 2:13:00, Duration: 30 day, Stop date: 12/05/14 22 :13:00 Notes: (Same as:MORPhine Sulfate) Start Date: 11/06/14 Stop Date: 11/07/14 Status: Discontinued naloxone 0.04 mg, Route: IVP, Q2MIN, Dosing Weight 58.352, kg, PRN Narcotic Reversal, Sta rt date: 11/10/14 12:36:00, Duration: 8 doses or times, Stop date: Limited # of times Start Date: 11/10/14 Stop Date: 11/10/14 Status: Discontinued Dunlow 5/325 oral tablet 1 tab, Route: PO, Drug Form: TAB, Dosing Weight 58.352, kg, Q4H, PRN Pain Score 1-3, Start date: 11/09/14 9:23:00, Duration: 30 day, Stop date: 12/09/14 9:22:00 Notes: (Same as: Dunlow 325/5) Do not exceed 4gm/day of acetaminophen. Start Date: 11/09/14 Stop Date: 11/12/14 Status: Discontinued omeprazole 40 mg, Route: PO, Drug form: DRC, Daily, Dosing Weight 57.727, kg, Start date: 0 11/06/14 9:00:00, Duration: 30 day, Stop date: 12/05/14 9:00:00 Start Date: 11/06/14 Stop Date: 11/06/14 Status: Deleted ondansetron 4 mg, 2 mL, Route: IVP, Drug form: INJ, Q8H, Dosing Weight 57.727, kg, PRN Nause a & Vomiting, Start date: 11/06/14 4:09:00, Duration: 30 day, Stop date: 12/06/14 4:08:00 Notes: (Same as: Tato) MEDICATION WASTE Product Size: 4 mgProduct Was norman: ___ mg Start Date: 11/06/14 Stop Date: 11/12/14 Status: Discontinued ondansetron 4 mg, Route: IVP, ONCE, Dosing Weight 58.352, kg, PRN Nausea & Vomiting, Start date: 11/10/14 12:36:00 Start Date: 11/10/14 Stop Date: 11/10/14 Status: Discontinued pneumococcal 23-valent vaccine 0.5 mL, Route: IM, Drug Form: INJ, Daily, Start date: 11/06/14 9:00:00, Duration : 1 doses or times, Stop date: 11/06/14 9:00:00 Notes: (Same as: Pneumovax 23) Refrigerate Start Date: 11/06/14 Stop Date: 11/06/14 Status: Completed promethazine 6.25 mg, Route: IVPB, ONCE, Dosing Weight 58.352, kg, PRN Nausea & Vomiting, Start date: 11/10/14 12:36:00 Start Date: 11/10/14 Stop Date: 11/10/14 Status: Discontinued Protonix 40 mg, 1 tab, Route: PO, Drug form: ECTAB, BID, Start date: 11/06/14 10:00:00, D uration: 30 day, Stop date: 12/06/14 9:00:00 Notes: Tablet should not be chewed or crushed.(Same as: Protonix) Start Date: 11/06/14 Stop Date: 11/12/14 Status: Discontinued tramadol 50 mg oral tablet 50 mg, 1 tab, Route: PO, Drug form: TAB, Q12H, Dosing Weight 57.727, kg, Start d ate: 11/06/14 9:00:00, Duration: 30 day, Stop date: 12/05/14 21:00:00 Notes: Not to exceed 400mg/day. (Same As: Ultram) Start Date: 11/06/14 Stop Date: 11/07/14 Status: Discontinued tramadol 50 mg oral tablet 50 mg=1 tab, PO, Q4H, PRN Pain Score 1-3, # 30 tab, 0 Refill(s) Start Date: 11/12/14 Status: Ordered tramadol 50 mg oral tablet 50 mg, 1 tab, Route: PO, Drug form: TAB, Q4H, Dosing Weight 58.352, kg, PRN Pain Score 1-3, Start date: 11/07/14 12:45:00, Duration: 30 day, Stop date: 12/07/14 12:44:00 Notes: Not to exceed 400mg/day. (Same As: Ultram) Start Date: 11/07/14 Stop Date: 11/12/14 Status: Discontinued Valium 5 mg, 1 tab, Route: PO, Drug form: TAB, ONCE, Dosing Weight 57.727, kg, Priority : STAT, Start date: 11/05/14 20:44:00, Stop date: 11/05/14 20:44:00 Notes: (Same as: Valium) Start Date: 11/05/14 Stop Date: 11/06/14 Status: Completed Valium 5 mg, Route: IVP, Drug form: INJ, ONCE, Dosing Weight 57.727, kg, Priority: STAT , Start date: 11/05/14 21:32:00, Stop date: 11/05/14 21:32:00 Start Date: 11/05/14 Stop Date: 11/05/14 Status: Completed Valium 2.5 mg, Route: IVP, Drug form: INJ, ONCE, Dosing Weight 57.727, kg, Priority: ST AT, Start date: 11/06/14 1:56:00, Stop date: 11/06/14 1:56:00 Start Date: 11/06/14 Stop Date: 11/06/14 Status: Completed Valium 5 mg, 1 mL, Route: IVP, Drug form: INJ, Q8H, Dosing Weight 57.727, kg, PRN See Danyel montoya's Notes, Priority: STAT, Start date: 11/06/14 2:14:00, Duration: 30 day, St op date: 12/06/14 2:13:00, For Plan Notes: (Same as: Valium) Start Date: 11/06/14 Stop Date: 11/12/14 Status: Discontinued Valium 5 mg oral tablet 5 mg=1 tab, PO, QID, PRN back pain, # 28 tab, 0 Refill(s) Start Date: 11/05/14 Stop Date: 11/06/14 Status: Discontinued Vitamin B12 2,500 microgram, 5 tab, Route: PO, Drug form: TAB, Daily, Dosing Weight 57.727, kg, Start date: 11/06/14 9:00:00, Stop date: 12/05/14 9:00:00 Notes: (Same As: Vitamin B12) Start Date: 11/06/14 Stop Date: 11/12/14 Status: Discontinued Results ELECTROLYTES Most recent to 1 2 oldest [Reference Range]: Sodium Lvl [135-145 136 mEq/L 137 mEq/L mEq/L] (11/07/14 5:54 AM) (11/06/14:05 AM) Potassium Lvl 3.8 mEq/L 3.9 mEq/L [3.5-5.1 mEq/L] (11/07/14:54 AM) (11/06/14:05 AM) Chloride Lvl [95-109 97 mEq/L 100 mEq/L mEq/L] (11/07/14:54 AM) (11/06/14:05 AM) CO2 [24-32 mEq/L] 29 mEq/L 30 mEq/L (11/07/14:54 AM) (11/06/14:05 AM) AGAP [10.0-20.0 13.8 mEq/L 10.9 mEq/L mEq/L] (11/07/14:54 AM) (11/06/14:05 AM) CHEM PANEL Most recent to 1 2 oldest [Reference Range]: Creatinine Lvl 0.8 mg/dL 0.7 mg/dL [0.5-1.4 mg/dL] (11/07/14:54 AM) (11/06/14:05 AM) eGFR 70 mL/min/1.73m2 1 82 mL/min/1.73m2 2 *NA* *NA* (11/07/14:54 AM) (11/06/14 9:05 AM) BUN [7-22 mg/dL] 11 mg/dL 12 mg/dL (11/07/14:54 AM) (11/06/14 9:05 AM) B/C Ratio [6-25] 14 17 (11/07/14:54 AM) (11/06/14 9:05 AM) Glucose Lvl [70-99 99 mg/dL 3 110 mg/dL 4 mg/dL] (11/07/14:54 AM) *HI* (11/06/14 9:05 AM) Total Protein 7.2 g/dL 7.7 g/dL [6.4-8.4 g/dL] (11/07/14 5:54 AM) (11/06/14 9:05 AM) Albumin Lvl [3.5-5.0 3.1 g/dL 3.1 g/dL g/dL] *LOW* *LOW* (11/07/14 5:54 AM) (11/06/14 9:05 AM) Globulin [2.0-4.0 4.1 g/dL 4.6 g/dL g/dL] *HI* *HI* (11/07/14 5:54 AM) (11/06/14 9:05 AM) A/G Ratio [0.7-1.6] 0.8 0.7 (11/07/14 5:54 AM) (11/06/14 9:05 AM) Calcium Lvl 8.4 mg/dL 8.5 mg/dL [8.5-10.5 mg/dL] *LOW* (11/06/14 9:05 AM) (11/07/14 5:54 AM) ALT [0-65 unit/L] 262 unit/L 112 unit/L *HI* *HI* (11/07/14 5:54 AM) (11/06/14 9:05 AM) AST [0-37 unit/L] 219 unit/L 249 unit/L *HI* *HI* (11/07/14 5:54 AM) (11/06/14 9:05 AM) Alk Phos [39-136 135 unit/L 105 unit/L unit/L] (11/07/14 5:54 AM) (11/06/14 9:05 AM) Bili Total [0.2-1.3 1.0 mg/dL 0.6 mg/dL mg/dL] (11/07/14 5:54 AM) (11/06/14 9:05 AM) 1Result Comment: The eGFR is calculated using [...] be mul tiplied by the estimated BMI. 2Result Comment: The eGFR is calculated using the [...] be mul tiplied by the estimated BMI. 3Interpretive Data: Adult reference range values reflect the clinical guidelines of the [place]. 4Interpretive Data: Adult reference range values reflect the clinical guidelines of the [place]. URINE AND STOOL Most recent to 1 2 oldest [Reference Range]: UA Turbidity [Clear] Clear (11/06/14 12:26 PM) UA Color [Yellow] Yellow *NA* (11/06/14 12:26 PM) UA pH [5.0-8.0] 6.0 (11/06/14 12:26 PM) UA Spec Grav 1.013 [<=1.030] (11/06/14 12:26 PM) UA Glucose [Negative Negative mg/dL mg/dL] *NA* (11/06/14 12:26 PM) UA Blood [Negative] Negative (11/06/14 12:26 PM) UA Ketones [Negative Negative mg/dL mg/dL] *NA* (11/06/14 12:26 PM) UA Protein [Negative Negative mg/dL mg/dL] (11/06/14 12:26 PM) UA Urobilinogen <=1.0 mg/dL [0.1-1.0 mg/dL] *NA* (11/06/14 12:26 PM) UA Bili [Negative] Negative *NA* (11/06/14 12:26 PM) UA Leuk Est Negative [Negative] (11/06/14 12:26 PM) UA Nitrite Negative [Negative] (11/06/14 12:26 PM) UA WBC [0-5 /HPF] 2 /HPF (11/06/14 12:26 PM) UA RBC [0-2 /HPF] 11 /HPF *HI* (11/06/14 12:26 PM) UA Sq Epi [Few /LPF] Occasional /LPF *NA* (11/06/14 12:26 PM) HEMATOLOGY Most recent to 1 2 oldest [Reference Range]: WBC [3.7-10.4 K/CMM] 13.1 K/CMM 10.3 K/CMM *HI* (11/06/14 9:05 AM) (11/07/14 5:54 AM) RBC [4.20-5.40 4.47 M/CMM 4.32 M/CMM M/CMM] (11/07/14 5:54 AM) (11/06/14 9:05 AM) Hgb [12.0-16.0 g/dL] 13.0 g/dL 12.7 g/dL (11/07/14 5:54 AM) (11/06/14 9:05 AM) Hct [36.0-48.0 %] 40.1 % 38.7 % (11/07/14 5:54 AM) (11/06/14 9:05 AM) MCV [80.0-98.0 fL] 89.7 fL 89.5 fL (11/07/14 5:54 AM) (11/06/14 9:05 AM) MCH [27.0-31.0 pg] 29.2 pg 29.5 pg (11/07/14 5:54 AM) (11/06/14 9:05 AM) MCHC [32.0-36.0 32.6 g/dL 32.9 g/dL g/dL] (11/07/14 5:54 AM) (11/06/14 9:05 AM) RDW [11.5-14.5 %] 14.0 % 13.5 % (11/07/14 5:54 AM) (11/06/14 9:05 AM) Platelet [133-450 187 K/CMM 204 K/CMM K/CMM] (11/07/14 5:54 AM) (11/06/14 9:05 AM) MPV [7.4-10.4 fL] 7.6 fL 7.0 fL (11/07/14 5:54 AM) *LOW* (11/06/14 9:05 AM) Segs [45.0-75.0 %] 76.5 % 77.1 % *HI* *HI* (11/07/14 5:54 AM) (11/06/14 9:05 AM) Lymphocytes 12.8 % 13.5 % [20.0-40.0 %] *LOW* *LOW* (11/07/14 5:54 AM) (11/06/14 9:05 AM) Monocytes [2.0-12.0 9.9 % 8.0 % %] (11/07/14 5:54 AM) (11/06/14 9:05 AM) Eosinophils [0.0-4.0 0.3 % 0.8 % %] (11/07/14 5:54 AM) (11/06/14 9:05 AM) Basophils [0.0-1.0 0.5 % 0.6 % %] (11/07/14 5:54 AM) (11/06/14 9:05 AM) Segs-Bands # 10.0 K/CMM 8.0 K/CMM [1.5-8.1 K/CMM] *HI* (11/06/14 9:05 AM) (11/07/14 5:54 AM) Lymphocytes # 1.7 K/CMM 1.4 K/CMM [1.0-5.5 K/CMM] (11/07/14 5:54 AM) (11/06/14 9:05 AM) Monocytes # [0.0-0.8 1.3 K/CMM 0.8 K/CMM K/CMM] *HI* (11/06/14 9:05 AM) (11/07/14 5:54 AM) Eosinophils # 0.1 K/CMM [0.0-0.5 K/CMM] (11/06/14 9:05 AM) Basophils # [0.0-0.2 0.1 K/CMM 0.1 K/CMM K/CMM] (11/07/14 5:54 AM) (11/06/14 9:05 AM) PT [12.0-14.7 13.9 seconds seconds] (11/07/14 5:54 AM) INR [0.85-1.17] 1.07 5 (11/07/14 5:54 AM) PTT [22.9-35.8 32.7 seconds 6 30.1 seconds 7 seconds] (11/07/14 5:54 AM) (11/06/14 9:05 AM) 5Interpretive Data: RECOMMENDED RANGES FOR PROTIME INR: 2.0-3.0 for most medical and surgical thromboembolic states. 2.5-3.5 for artificial heart valves and recurrent embolism. INR SHOULD BE USED ONLY FOR PATIENTS ON STABLE ANTICOAGULANT THERAPY. 6Interpretive Data: Heparin Therapeutic Range: 57 - 92 Seconds 7Interpretive Data: Heparin Therapeutic Range: 57 - 92 Seconds Immunizations Vaccine Date Refusal Reason pneumococcal 23-valent vaccine 11/06/14 Procedures Procedure Date Related Diagnosis Body Site Abdominal hysterectomy Bilateral radical mastectomy1 Bunionectomy Cholecystectomy Partial shoulder replacement 1right Social History Social History Type Response Smoking Status Never smoker; Exposure to Tobacco Smoke None; Cigarette Smoking Last 365 Days No; Reg Smoking Cessation Counseling No Assessment and Plan Extracted from: Title: Clinical Document Author: Gayathri Medina MD Date: 11/12/14 Medicine Progress Daily Chief Complaint: vertebral fracture Subjective & Interval history: Patient seen and examined. Denies KOENIG dizziness. Denies chest pain or sob. Denies sob, cough wheezing. Denies dysuria, frequency. Denies swelling. Objective: Vital Signs (last 24 hrs) Last Charted Minimum Maximum Temp98.5 (NOV 12 07:55)98.5 (NOV 12 04:00)99.0 (NOV 11 12:13) Heart Rate79 (NOV 12 07:55)68 (NOV 12 00:00)79 (NOV 12 07:55) Resp Rate 18 (NOV 12 07:55)18 (NOV 11 12:13)18 (NOV 11 12:13) SBPH 142 (NOV 12 07:55)105 (NOV 12 00:00)H 151 (NOV 11 16:05) DBP81 (NOV 12 07:55)68 (NOV 12 00:00)81 (NOV 12 07:55) Medications and labs reviewed as below. PHYSICAL EXAM: GENERAL: AAO NAD HEENT: NCAT, perrl, eomi NECK: Supple, midline trachea LUNGS: CTAB, No rales, rhonchi or wheezes. Non labored breathing. CARDIOVASCULAR: S1, S2 normal. No M/G/R. ABDOMEN: Soft, ND, NT. BS + EXTREMITIES: No C/C , or Edema SKIN: No rashes. IMPRESSION: 1. Accidental trip and fall. 2. Left hip and lower back pain, ruled out fracture. 3. History of chronic pain. 4. Osteopenia. 5. Gastroesophageal reflux disease. 6. Left wrist hematoma. PLAN & TREATMENT S/P Vertebroplasty pain better ambulatiing continue pain control home med bowel regimen PPI For details see orders. Plan of care discussed with Disposition: Home with home health Input/Output RecordInOutBal 04/1224hr Tot 255 0 255 04/1124hr Tot 1526 1 1524 Scheduled Meds (6):celecoxib (CeleBREX), cyanocobalamin (Vitamin B12), enoxaparin, escitalopram, pantoprazole (Protonix), polyethylene glycol 3350 (MiraLax) Unscheduled Meds: None PRN Meds (8):ALPRAZolam (ALPRAZOLam), acetaminophen-hydrocodone ([place] 5/325 oral tablet), diazepam (Valium), hydrOXYzine, lactulose (lactulose 10 g/15 mL oral syrup), morphine Sulfate, ondansetron, tramadol (tramadol 50 mg oral tablet) One Time Meds: None Continuous Infusions: None Labs (Last four charted values) WBC H 13.1(NOV 07)10.3(NOV 06) Hgb 13.0(NOV 07)12.7(NOV 06) Hct 40.1(NOV 07)38.7(NOV 06) Plt 187(NOV 07)204(NOV 06) Na 136(NOV 07)137(NOV 06) K 3.8(NOV 07)3.9(NOV 06) CO2 29(NOV 07)30(NOV 06) Cl 97(NOV 07)100(NOV 06) Cr 0.8(NOV 07)0.7(NOV 06) BUN 11(NOV 07)12(NOV 06) Glucose Random 99(NOV 07)H 110(NOV 06) Ca L 8.4(NOV 07)8.5(NOV 06) PT 13.9(NOV 07) INR 1.07(NOV 07) PTT 32.7(NOV 07)30.1(NOV 06)
--- OUTSIDE RECORDS SUMMARY | 2018-11-19 14:01 | XMS REPORT | Summary of Care ---
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
--- OUTSIDE RECORDS SUMMARY | 2018-11-19 14:01 | XMS REPORT | Summary of Care ---
Author Author [facility] Outpatient Imaging [facility] Outpatient Imaging [facility] Address Unknown Phone Unavailable Encounter HQ Benja(FIN) [id number] Date(s): 02/18/17 - 02/18/17 [facility] Imaging [facility] [address] [facility], [address] [place], [place] [address] [phone] Discharge Disposition: Home or Self Care Attending Physician: Rodriguez Castro MD Vital Signs No data available for [...]
--- OUTSIDE RECORDS SUMMARY | 2018-11-19 14:01 | XMS REPORT | Summary of Care ---
Author Organization Unknown Address Unknown Phone Unavailable Encounter PEMA Yousif(ANAMIKA) [id number] Date(s): 10/03/14 - 10/03/14 [facility] [address] [place] [address]- Discharge Disposition: Home Physician Attending: Trevon Hernandez MD Physician_Referring: Trevon Hernnadez MD Vital Signs 1 2 3 Most recent to oldest [Reference Range]: 157.48 cm (09/26/14 10:26 AM) Height 98 DegF (09/26/14 10:30 AM) Temperature Oral [96.4-99.1 DegF] 160/69 mmHg *HI* (10/03/14 8:24 AM) 157/65 mmHg *HI* (10/03/14 8:05 AM) 147/69 mmHg *HI* (10/03/14 7:50 AM) Blood Pressure [90-140/60-90 mmHg] 12 BRMIN *LOW* (10/03/14 8:24 AM) 10 BRMIN *LOW* (10/03/14 8:05 AM) 16 BRMIN (10/03/14 7:50 AM) Respiratory Rate [14-20 BRMIN] 69 bpm (09/26/14 10:30 AM) Peripheral Pulse Rate [60-100 bpm] 57.727 kg (09/26/14 10:26 AM) Weight 23.28 m2 (09/26/14 10:26 AM) Body Mass Index Problem List Condition Effective Dates Status Health Status Informant Acid Active reflux(Confirmed) Arthritis(Confirmed) Resolved Breast Resolved cancer(Confirmed) Degenerative disc Active disease(Confirmed) Depression(Confirmed Active ) Scoliosis(Confirmed) Resolved Allergies, Adverse Reactions, Alerts Substance Reaction Severity Status codeine Active sulfa drugs Active Talwin Active Medications ALPRAZOLam 0.25 mg oral tablet, disintegrating 0.25 mg=1 tab, PO, Bedtime, for anxiety, 0 Refill(s) Start Date: 09/26/14 Status: Ordered Calcium 600 +D oral tablet 1 tab, PO, BID, # 90 tab, 0 Refill(s) Start Date: 09/26/14 Status: Ordered chlorzoxazone 500 mg oral tablet 500 mg=1 tab, PO, BID, # 42 tab, 0 Refill(s) Start Date: 09/26/14 Stop Date: 10/10/14 Status: Ordered escitalopram 10 mg oral tablet 10 mg=1 tab, PO, Daily, # 30 tab, 0 Refill(s) Start Date: 09/26/14 Status: Ordered glucosamine 1, PO, Daily, 0 Refill(s) Start Date: 09/26/14 Status: Ordered [place] 7.5/325 oral tablet 1-2 tab, PO, Q4-6H, Pain, # 30 tab, 0 Refill(s) Start Date: 09/26/14 Stop Date: 10/01/14 Status: Ordered Ocuvite Lutein oral capsule 1, PO, Daily, 0 Refill(s) Start Date: 09/26/14 Status: Ordered [place]-500 500 mg, PO, Daily, 0 Refill(s) Start Date: 09/26/14 Status: Ordered omeprazole 40 mg oral delayed release capsule 40 mg=1 cap, PO, Daily, # 30 cap, 0 Refill(s) Start Date: 09/26/14 Status: Ordered red yeast rice 600 mg oral capsule 2, PO, Daily, 0 Refill(s) Start Date: 09/26/14 Status: Ordered Sodium Chloride 0.9% (Bolus) IV 500 mL, 0 ml/hr, Infuse Over: 0 hr, Route: IV, 500, Drug form: INJ, ONCE, Dosing Weight 57.727 kg, Start date: 10/03/14 6:33:00, Stop date: 10/03/14 6:33:00, Charli anastacio Start Date: 10/03/14 Stop Date: 10/03/14 Status: Completed tramadol 50 mg oral tablet 50 mg=1 tab, PO, Q12H, Pain, # 40 tab, 0 Refill(s) Start Date: 09/26/14 Stop Date: 10/06/14 Status: Ordered Vitamin B Complex oral tablet 0 Refill(s) Start Date: 09/26/14 Status: Ordered Vitamin B12 2,500 mg, PO, Daily, 0 Refill(s) Start Date: 09/26/14 Status: Ordered Results No data available for this section Immunizations No data available for this section Procedures No data available for this section Social History Social History Type Response Smoking Status Never smoker; Exposure to Tobacco Smoke None; Cigarette Smoking Last 365 Days No; Reg Smoking Cessation Counseling No Assessment and Plan No data available for this section
--- OUTSIDE RECORDS SUMMARY | 2018-11-19 14:01 | XMS REPORT | Summary of Care ---
Author Organization Unknown Address Unknown Phone Unavailable Encounter PEMA Yousif(ANAMIKA) [id number] Date(s): 11/17/14 - 11/17/14 [facility] [address] [place] [address]- Discharge Disposition: Home Physician Attending: Alicia Jones MD Vital Signs No data available for [...]
--- OUTSIDE RECORDS SUMMARY | 2018-11-19 14:01 | XMS REPORT | Summary of Care ---
Author Author [facility] Outpatient Imaging [facility] Outpatient Imaging [facility] Address Unknown Phone Unavailable Encounter HQ Keegan_gee(FIN) [id number] Date(s): 12/01/17 - 12/01/17 [facility] Outpatient Imaging [facility] [address] [facility] [address], [address] [place] [phone] Encounter Diagnosis Cervicalgia (Final) - Discharge Disposition: Home or Self [...] drugs Active codeine Active Talwin Active Medications No data available [...] Reg Smoking Cessation Counseling No entered on: 01/14/16 Assessment and Plan No data available for this section
--- OUTSIDE RECORDS SUMMARY | 2018-11-19 14:01 | XMS REPORT | Summary of Care ---
Author Author [facility] Outpatient Imaging [facility] Address Unknown Phone Unavailable Encounter HQ Keegan_gee(FIN) [id number] Date(s): 05/07/17 - 05/07/17 [facility] [address] [facility], [address] [place], [place] [address] [phone] Discharge Disposition: Home or Self Care Attending [...]
--- OUTSIDE RECORDS SUMMARY | 2018-11-19 14:01 | XMS REPORT | Summary of Care ---
Author Author [facility] [place] Organization [facility] [place] Address Unknown Phone Unavailable Encounter HQ Benja(FIN) [id number] Date(s): 11/06/18 - 11/06/18 [facility] [place] [address] [place] [address] [phone] Discharge Disposition: Home or Self Care Attending Physician: Radha Santizo MD Referring Physician: Radha Santizo MD Vital Signs No data available for [...]
--- OUTSIDE RECORDS SUMMARY | 2018-11-19 14:01 | XMS REPORT | Summary of Care ---
Author Organization Unknown Address Unknown Phone Unavailable Encounter Dates Location Diagnoses Discharge Providers Disposition 10/07/2013 [facility] 10/07/2013 [address] Reason for Visit 786.50 Problem List Condition Effective Dates Status Health Status Informant Arthritis(Confirmed) Resolved Breast Resolved cancer(Confirmed) Scoliosis(Confirmed) Resolved Allergies, Adverse Reactions, Alerts Status Substance Reaction Severity Active codeine Active sulfa drugs Active Talwin Medications No data available for this section Medications Administered During Your Visit No data available for this section Immunizations No data available for this section
--- OUTSIDE RECORDS SUMMARY | 2018-11-19 14:01 | XMS REPORT | Summary of Care ---
Author Author [facility] [place] Organization [facility] [place] Address Unknown Phone Unavailable Encounter HQ Benja(FIN) [id number] Date(s): 08/25/18 - 08/25/18 [facility] [place] [address] [place] [address] [phone] Discharge Disposition: Home or Self Care Attending [...]
--- OUTSIDE RECORDS SUMMARY | 2018-11-19 14:01 | XMS REPORT | Summary of Care ---
Author Author [facility] Outpatient Imaging [facility] Outpatient Imaging [facility] Address Unknown Phone Unavailable Encounter HQ Benja(FIN) [id number] Date(s): 12/01/17 - 12/01/17 [facility] [address] [facility], [address] [place], [place] [address] [phone] Discharge Disposition: Home or Self Care Attending [...]
--- OUTSIDE RECORDS SUMMARY | 2018-11-19 14:01 | XMS REPORT | Summary of Care ---
Author Author [facility] Outpatient Imaging [facility] Outpatient Imaging [facility] Address Unknown Phone Unavailable Encounter PEMA Yousif(FIN) [id number] Date(s): 05/18/15 - 05/18/15 [facility] Outpatient Imaging [facility] [address] [facility], [address] [place], [place] [address] [place] [address] [phone] Discharge Disposition: Home Attending Physician: Rodriguez Castro MD Vital Signs [...]
--- OUTSIDE RECORDS SUMMARY | 2018-11-19 14:02 | XMS REPORT | Summary of Care ---
Author Author [facility] Organization [facility] Address Unknown Phone Unavailable Encounter PEMA Yousif(ANAMIKA) [id number] Date(s): 06/12/16 - 07/11/16 [facility] [address] [place] [address]- [phone] Discharge Disposition: Home or Self Care Attending Physician: Kaitlynn Auguste MD Referring Physician: Kaitlynn Auguste MD Vital Signs Most recent to 1 oldest [Reference Range]: Height 152.4 cm (06/11/16 10:15 AM) Temperature Oral 98 DegF [96.4-99.1 DegF] (06/12/16 10:44 AM) Blood Pressure 162/72 mmHg [90-140/60-90 mmHg] *HI* (06/12/16 10:44 AM) Respiratory Rate 18 BRMIN [14-20 BRMIN] (06/12/16 10:44 AM) Peripheral Pulse 64 bpm Rate [60-100 bpm] (06/12/16 10:44 AM) Weight 58.182 kg (06/11/16 10:15 AM) Body Mass Index 25.05 m2 (06/11/16 10:15 AM) Problem List Condition Effective Dates Status Health [...] SUB-Q, Drug form: SOLN, ONCALL, Start date: 06/12/16 9:00:00 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
--- OUTSIDE RECORDS SUMMARY | 2018-11-19 14:02 | XMS REPORT | Summary of Care ---
Author Author [facility] Organization [facility] Address Unknown Phone Unavailable Encounter PEMA Yousif(ANAMIKA) [id number] Date(s): 01/15/16 - 01/15/16 [facility] [address] [place] [address]- Discharge Disposition: Home Attending Physician: Trevno Hernandez MD Referring Physician: Trevon Hernandez MD Vital Signs 1 2 3 Most recent to oldest [Reference Range]: 152.4 cm (01/15/16 9:10 AM) Height 128/69 mmHg (01/15/16 11:00 AM) 165/63 mmHg *HI* (01/15/16 10:45 AM) 126/67 mmHg (01/15/16 10:30 AM) Blood Pressure [90-140/60-90 mmHg] 17 BRMIN (01/15/16 11:00 AM) 20 BRMIN (01/15/16 10:45 AM) 21 BRMIN *HI* (01/15/16 10:30 AM) Respiratory Rate [14-20 BRMIN] 57 bpm *LOW* (01/15/16 11:00 AM) 51 bpm *LOW* (01/15/16 10:45 AM) 69 bpm (01/15/16 10:30 AM) Peripheral Pulse Rate [60-100 bpm] 58.182 kg (01/15/16 9:10 AM) Weight 25.05 m2 (01/15/16 9:10 AM) Body Mass Index Problem List Condition Effective Dates Status Health Status Informant Acid Active reflux(Confirmed) Anemia(Confirmed) Active Anxiety(Confirmed) Active Arthritis(Confirmed) Active Breast Resolved cancer(Confirmed) Degenerative disc Active disease(Confirmed) Depression(Confirmed Active ) Diabetes Active mellitus(Confirmed) HTN Resolved (hypertension)(Confi rmed) Scoliosis(Confirmed) Active Allergies, Adverse Reactions, Alerts Substance Reaction Severity Status codeine Active sulfa drugs Active Talwin Active Medications celecoxib 100 mg oral capsule 100 mg=1 cap, PO, BID, 0 Refill(s) Start Date: 01/14/16 Stop Date: 01/14/16 Status: Deleted fluticasone 50 mcg inhalation powder INHALATION, BID, 0 Refill(s) Start Date: 01/14/16 Status: Ordered lansoprazole 30 mg oral delayed release capsule 30 mg=1 cap, PO, Daily, 0 Refill(s) Start Date: 01/14/16 Status: Ordered lisinopril 20 mg oral tablet 20 mg=1 tab, PO, Daily, # 30 tab, 0 Refill(s) Start Date: 01/14/16 Status: Ordered nystatin topical TOP, TID, 0 Refill(s) Start Date: 01/14/16 Status: Ordered sodium chloride 0.9% 1000 ml INJ 1,000 mL 1,000 mL, Rate: 25 ml/hr, Infuse over: 40 hr, Route: IV, Dosing Weight 57.7 kg, Total Volume: 1,000, Start date: 01/15/16 9:10:00 CDT, Duration: 30 day, Stop da te: 02/14/16 9:09:00 CDT Start Date: 01/15/16 Stop Date: 01/15/16 Status: Discontinued venlafaxine 75 mg oral tablet 75 mg=1 tab, PO, BID, # 60 tab, 0 Refill(s) Start Date: 01/14/16 Status: Ordered venlafaxine 75 mg oral tablet 75 mg=1 tab, PO, BID, # 60 tab, 0 Refill(s) Start Date: 01/14/16 Status: Ordered Results No data available for [...]
--- OUTSIDE RECORDS SUMMARY | 2018-11-19 14:02 | XMS REPORT | Summary of Care ---
Author Author [facility] Outpatient Imaging [facility] Outpatient Imaging [facility] Address Unknown Phone Unavailable Encounter HQ Benja(FIN) [id number] Date(s): 06/25/16 - 06/25/16 [facility] [address] [facility], [address] [place], [place] [address] [phone] Discharge Disposition: Home or Self Care Attending [...]
--- OUTSIDE RECORDS SUMMARY | 2018-11-19 14:02 | XMS REPORT | Summary of Care ---
Author Author [facility] [place] Organization [facility] [place] Address Unknown Phone Unavailable Encounter PEMA Yousif(ANAMIKA) [id number] Date(s): 06/14/15 - 06/14/15 [facility] [place] [address] [place], [place] [address] [phone] Discharge Disposition: Home Attending Physician: Rodriguez Castro [...]
--- OUTSIDE RECORDS SUMMARY | 2018-11-19 14:02 | XMS REPORT | Summary of Care ---
Author Author [facility] Organization [facility] Address Unknown Phone Unavailable Encounter HQ Keegan_gee(FIN) [id number] Date(s): 05/16/16 - 05/16/16 [facility] [address] [place] [address]- Discharge Disposition: Home or Self Care Attending Physician: Lisa Nielsen MD Referring Physician: Lisa Nielsen MD Vital Signs No [...]
--- OUTSIDE RECORDS SUMMARY | 2018-11-19 14:02 | XMS REPORT | Summary of Care ---
Author Author Italia Dent M.A. Unknown Address Unknown Phone Unavailable Care Team Providers Care Import Customer Service Manager Name Role Phone LINA NOLASCO Unavailable Unavailable JENNIFER Griggs, ELMO Unavailable Unavailable JENNIFER CHOWDHURY, ELMO Lindsay Unavailable Unavailable THOM CHOWDHURY MT, PELON MURRAY Unavailable Unavailable BRAD MOYA, GERMAINE Unavailable Unavailable Nikkie CHOWDHURY, Carlos Unavailable Unavailable DEIDRE CHOWDHURY MT, EDUARD MARIO Unavailable Unavailable Unavailable Unavailable Functional Status Name Dates Details Functional status health issues are not documented Status: Name Dates Details Cognitive status health issues are not documented Status: Problems Name Dates Details 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, 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 Osteoporosis (733.00, M81.0) Status: Active 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 use of non-steroidal anti-inflammatories (NSAID) (V58.64, Z79.1) Status: Active Sacroiliitis (720.2, M46.1) Status: Active History of right breast cancer (V10.3, Z85.3) Status: Active Presence of right breast implant (V43.82, Z98.82) Status: Active History of breast cancer in female (V10.3, Z85.3) Status: Active Hyperglycemia (790.29, R73.9) Status: Active Chronic gastroesophageal reflux disease (530.81, K21.9) Status: Active Arthritis (716.90, M19.90) Status: Active Major depressive disorder, recurrent, moderate (296.32, F33.1) Status: Active Weakness (780.79, R53.1) Status: Active Dysphagia (787.20, R13.10) Status: Active Vitamin D insufficiency (268.9, E55.9) Status: Active Degenerative disc disease, cervical (722.4, M50.30) Status: Active Encounter for mini-mental status examination Status: Active Mild cognitive impairment (331.83, G31.84) Status: Active Splenic artery aneurysm (442.83, I72.8) Status: Active Advance care planning (V65.49, Z71.89) Status: Active Gastritis (535.50, K29.70) Status: Active Depression with anxiety (300.4, F41.8) Status: Active Low back pain (724.2, M54.5) Status: Active Essential hypertension, benign (401.1, I10) Status: Active Grief reaction (309.0, F43.21) Status: Active Insomnia (780.52, G47.00) Status: Active Other fatigue (780.79, R53.83) Status: Active Anxiety (300.00, F41.9) Status: Active Nevus, non-neoplastic (448.1, I78.1) Status: Active Traumatic hematoma of upper arm, left, sequela (906.3, S40.022S) Status: Active Traumatic hematoma of lower leg, left, subsequent encounter (V58.89, S80.12XD) Status: Active Encounter for deaccessing implanted intravenous port (V58.81, Z45.2) Status: Active Diabetes mellitus (250.00, E11.9) Status: Active 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, 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) Status: Active Other complication of vascular prosthetic device, implant, or graft (996.74, T82.898A) Status: Active Unsteady gait (781.2, R26.81) Status: Active 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 * Refills: 0 Active Vitamin B-12 TABS TAKE 1 TABLET DAILY. * Refills: 0 Active Chxwb-Xf-Hqbw Maximum Strength TABS TAKE 1 TABLET DAILY * Refills: 0 Active Cranberry CAPS TAKE 1 CAPSULE DAILY * Refills: 0 Active Pantoprazole Sodium 40 MG Oral Tablet Delayed Release TAKE 1 TABLET DAILY. * Quantity: 90 Refills: 1 CYR P.A., LINA * Start : 28-Jan-2016 Active CoQ10 200 MG Oral Capsule TAKE 1 CAPSULE DAILY * Refills: 0 * Start : 07-May-2016 Active Durezol 0.05 % Ophthalmic Emulsion 1 drop into both eyes twice daily * Refills: 0 * Start : 07-May-2016 Active 5 ML Bottle Lisinopril 20 MG Oral Tablet TAKE 1 TABLET BY MOUTH DAILY * Quantity: 90 Refills: 0 CYR P.A., LINA * Start : 12-Oct-2018 Active Escitalopram Oxalate 20 MG Oral Tablet TAKE 1 TABLET DAILY * Quantity: 90 Refills: 1 CYR P.A., LINA * Start : 28-Jan-2017 Active traZODone HCl - 50 MG Oral Tablet TAKE 1 TABLET BEDTIME PRN * Quantity: 90 Refills: 1 CYR P.A., LINA * Start : 30-Mar-2018 Active Cyclobenzaprine HCl - 5 MG Oral Tablet TAKE 1 TABLET AT BEDTIME NEEDED. * Quantity: 7 Refills: 0 CYR P.A., LINA * Start : 08-Sep-2018 Active Meloxicam 7.5 MG Oral Tablet TAKE 1 TABLET TWICE DAILY NEEDED. * Quantity: 30 Refills: 1 CYR P.A., LINA * Start : 06-Oct-2018 Active Cefdinir 300 MG Oral Capsule TAKE 1 CAPSULE TWICE DAILY UNTIL GONE. * Quantity: 20 Refills: 0 ELMO RODRIGUEZ M.D. * Start : 15-Nov-2018 End : 25-Nov-2018 Active Allergies and Adverse Reactions Name Dates Details Bactrim TABS (Allergy) Status: Active Talwin NX TABS (Allergy) Status: Active Past Medical History Name Dates Details History of Arthritis (V13.4) Status: Resolved History of Back Pain Status: Resolved History of Breast pain, right (611.71, N64.4) Status: Resolved History of chest pain (V13.89, Z87.898) Status: Resolved History of Diverticulosis (562.10, K57.90) Status: Resolved History of esophageal reflux (V12.79, Z87.19) Status: Resolved History of Lower back pain (724.2, M54.5) Status: Resolved History of Muscle spasm (728.85, M62.838) Status: Resolved History of neck pain (V13.59, Z87.39) Status: Resolved History of Scoliosis (737.30, M41.9) Status: Resolved Procedures Procedure Dates Details History of Cholecystectomy Completed History of Hysterectomy Completed History of Hysterectomy Completed History of Foot Surgery Completed History of Shoulder Surgery Completed History of Breast Surgery Completed History of Cholecystectomy Completed History of Removal of device Completed Immunization Name Dates Details Fluzone INJ Lot #: [id number] on: 24-Jun-2013 Pneumococcal polysaccharide vaccine, 23 valent Lot #: [id number] on: 09-Nov-2015 Prevnar 13 Intramuscular Suspension Lot #: [id number] on: 08-May-2018 Family History Name Dates Details Family history of Hypertension (V17.49) Comments: Family History Status: Active Name Dates Details Family history of cardiac disorder (V17.49, Z82.49) Status: Active Name Dates Details Family history of Prior Myocardial Infarction Status: Active Name Dates Details Family history of Diabetes Mellitus (V18.0) Status: Active Family history of Chronic Obstructive Pulmonary Disease Status: Active Social History Name Dates Details - Status: Name Dates Details Never smoker Vital Signs Date Test Result Details [id number] BP Systolic 140 mm[Hg] Status: BP Diastolic 65 mm[Hg] Status: Heart Rate 73 /min Status: Height 59 in Status: Weight 123 lb Status: Body Mass Index Calculated 24.84 kg/m2 Status: Body Surface Area Calculated 1.5 m2 Status: Temperature 98.4 f Status: Comments: Method: Temporal Respiration Rate 16 /min Status: [id number]:51 BP Systolic 148 mm[Hg] Status: Comments: Location: LUE; Position: Sitting BP Diastolic 63 mm[Hg] Status: Comments: Location: LUE; Position: Sitting Heart Rate 70 /min Status: Comments: Location: L Brachial Artery; [id number] BP Systolic 144 mm[Hg] Status: Comments: Location: LUE; Position: Sitting BP Diastolic 66 mm[Hg] Status: Comments: Location: LUE; Position: Sitting Heart Rate 69 /min Status: Comments: Location: L Brachial Artery; Height 59 in Status: Weight 123 lb Status: Body Mass Index Calculated 24.84 kg/m2 Status: Body Surface Area Calculated 1.5 m2 Status: Temperature 97.7 f Status: Comments: Method: Temporal Respiration Rate 18 /min Status: Physical Findings 0 Status: Comments: Pain Scale Results Date Description Value Details [id number] [O] Urine Dipstick (In Office) Glucose Normal (Normal) LEUKOCYTES ++ (Abnormal) NITRITE Negative (Normal) UROBILINOGEN Normal (Normal) PROTEIN Trace (Abnormal) pH 5 (Normal) URINE BLOOD Trace (Abnormal) SPECIFIC GRAVITY 1.015 (Normal) KETONES Negative (Normal) BILIRUBIN ++ (Abnormal) COLOR URINE Yellow (Normal) APPEARANCE Clear (Normal) 76-[id number]:00 [COUNT INCLUDES THE [facility]] CULTURE, URINE, ROUTINE CULTURE Comments: CULTURE, URINE, ROUTINE MICRO NUMBER: [id number] TEST STATUS: FINAL SPECIMEN SOURCE: URINE SPECIMEN QUALITY: ADEQUATE RESULT: Three or more organisms present, each greater than 10,000 cu/mL. May represent normal yulissa contamination from external genitalia. No further testing is required. Plan of Care Name Dates Details Planned Observations Planned Goals not documented Planned Encounters Appointment; LINA CYR P.A. On: 01-Dec-2018 14:15 Interventions Provided Medication Changes* Cefdinir 300 MG Oral Capsule - Start Plan* rest and fluids * finish abx * f/u prn Instructions Name Dates Details Instructions not documented Encounters Appointment; ANAY MARIANO M.D. Encounter Diagnosis: Problem not documented On: 01-Jan-2017 18:30 Appointment; CECILY HINES NP Encounter Diagnosis: Problem not documented On: 28-Jan-2017 15:30 Appointment; PELON TOMAS M.D. Encounter Diagnosis: Problem not documented On: 10-Feb-2017 16:00 Appointment; CECILY HINES NP Encounter Diagnosis: Problem not documented On: 18-Feb-2017 15:30 Appointment; GERMAINE SALINAS PPaulina Encounter Diagnosis: Problem not documented On: 15-Apr-2017 13:45 Appointment; GERMAINE SALINAS P.APaula Encounter Diagnosis: Problem not documented On: 05-May-2017 10:00 Appointment; PELON TOMAS M.D. Encounter Diagnosis: Problem not documented On: 12-May-2017 15:30 Appointment; CECILY HINES NP Encounter Diagnosis: Problem not documented On: 27-May-2017 17:30 Appointment; KT SAUCEDA M.D. Encounter Diagnosis: Problem not documented On: 30-Jun-2017 10:15 Appointment; CARLOS LUNA M.D. Encounter Diagnosis: Problem not documented On: 20-Jul-2017 10:20 Appointment; CECILY HINES NP Encounter Diagnosis: Problem not documented On: 15-Aug-2017 11:15 Appointment; CECILY HINES NP Encounter Diagnosis: Problem not documented On: 07-Oct-2017 11:30 Appointment; PELON TOMAS M.D. Encounter Diagnosis: Problem not documented On: 10-Nov-2017 16:00 Appointment; LINA CYR P.APaula Encounter Diagnosis: Problem not documented On: 17-Nov-2017 13:45 Appointment; CECILY HINES NP Encounter Diagnosis: Problem not documented On: 21-Nov-2017 10:45 Appointment; LINA CYR P.APaula Encounter Diagnosis: Problem not documented On: 01-Dec-2017 9:30 Appointment; CECILY HINES NP Encounter Diagnosis: Problem not documented On: 19-Dec-2017 10:45 Appointment; CECILY HINES NP Encounter Diagnosis: Problem not documented On: 31-Dec-2017 11:00 Appointment; ZURI VILLALOBOS M.D. Encounter Diagnosis: Problem not documented On: 17-Mar-2018 14:00 Appointment; LINA CYR, P.APaula Encounter Diagnosis: Problem not documented On: 30-Mar-2018 10:00 Appointment; LINA CYR P.APaula Encounter Diagnosis: Problem not documented On: 21-Apr-2018 9:45 Appointment; LINA CYR P.APaula Encounter Diagnosis: Problem not documented On: 08-May-2018 12:00 Appointment; PELON TOMAS M.D. Encounter Diagnosis: Problem not documented On: 11-May-2018 14:00 Appointment; ZURI VILLALOBOS M.D. Encounter Diagnosis: Problem not documented On: 12-May-2018 13:30 Appointment; AMY SERRA NP Encounter Diagnosis: Problem not documented On: 08-Jun-2018 12:30 Appointment; JONH GUARDADO M.D. Encounter Diagnosis: Problem not documented On: 18-Jun-2018 9:00 Appointment; BROOKS HOWARD M.D. Encounter Diagnosis: Problem not documented On: 23-Jun-2018 11:00 Appointment; LINA CYR P.A. Encounter Diagnosis: Problem not documented On: 19-Jul-2018 10:00 Appointment; LINA CYR P.A. Encounter Diagnosis: Problem not documented On: 19-Jul-2018 10:00 Appointment; LINA CYR P.A. Encounter Diagnosis: Problem not documented On: 08-Sep-2018 14:45 Appointment; LINA CYR P.A. Encounter Diagnosis: Problem not documented On: 06-Oct-2018 13:30 Appointment; ELMO RODRIGUEZ M.D. Encounter Diagnosis: Problem not documented On: 23-Oct-2018 11:00 Appointment; ELMO RODRIGUEZ M.D. Encounter Diagnosis: Problem not documented On: 15-Nov-2018 15:45
--- OUTSIDE RECORDS SUMMARY | 2018-11-19 14:02 | XMS REPORT ---
Author Author Poonam ACOSTA, Tamika Organization Unknown Address [address] [facility] Phone Unavailable Care Team Providers Care Weaving Professor Name Role Phone Dr. Renny Bailon Unavailable Unavailable Allergies Type Substance Reaction Status drug allergy Codeine Active drug allergy Sulfa Antibiotics Active drug allergy Talwin Nx Active Problems Problem Effective Dates Problem Status L03.116 CELLULITIS OF LEFT LOWER LIMB 05/21/2018 Active M62.81 MUSCLE WEAKNESS (GENERALIZED) 05/23/2018 Active G89.18 OTHER ACUTE POSTPROCEDURAL PAIN 05/22/2018 Active I10 ESSENTIAL (PRIMARY) HYPERTENSION 05/22/2018 Active K21.9 GASTRO-ESOPHAGEAL REFLUX DISEASE WITHOUT ESOPHAGITIS 05/22/2018 Active Z51.89 ENCOUNTER FOR OTHER SPECIFIED AFTERCARE 05/21/2018 Active Z91.81 HISTORY OF FALLING 05/21/2018 Active E11.9 TYPE 2 DIABETES MELLITUS WITHOUT COMPLICATIONS 05/21/2018 Active F33.9 MAJOR DEPRESSIVE DISORDER, RECURRENT, UNSPECIFIED 05/21/2018 Active D64.9 ANEMIA, UNSPECIFIED 05/21/2018 Active M19.90 UNSPECIFIED OSTEOARTHRITIS, UNSPECIFIED SITE 05/21/2018 Active F41.9 ANXIETY DISORDER, UNSPECIFIED 05/21/2018 Active M41.9 SCOLIOSIS, UNSPECIFIED 05/21/2018 Active Medications Medication Dose Form Route Sig Text Dates Status CefTRIAXone Sodium Solution Reconstituted 2 GM 2 gram Solution Reconstituted Intravenous Use 2 gram intravenously every 24 hours for cellulitis for 2 Weeks 05/22/2018 20:00:00 06/05/2018 19:59:00 Completed TraMADol HCl Tablet 50 MG 2 tablet Tablet Oral Give 2 tablet by mouth every 8 hours as needed for pain for 5 Days 05/21/2018 20:45:00 05/26/2018 20:44:00 Completed Tuberculin PPD Solution 5 UNIT/0.1ML 0.1 ml Solution Intradermal Inject 0.1 ml intradermally one time only for TB SKIN for 3 Days Document administration, lot # & lining machine tender in immunization section of EMAR 05/21/2018 20:37:00 05/24/2018 20:36:00 Completed Escitalopram Oxalate Tablet 20 MG 1 tablet Tablet Oral 1 TAB(S) BY MOUTH DAILY 05/22/2018 8:00:00 06/05/2018 22:09:00 Aborted Docusate Sodium Capsule 100 MG 1 capsule Capsule Oral Give 1 capsule by mouth two times a day for constipation 05/22/2018 8:00:00 06/05/2018 22:09:00 Aborted Omeprazole Capsule Delayed Release 40 MG 1 capsule Capsule Delayed Release Oral Give 1 capsule by mouth one time a day for GERD 05/22/2018 6:30:00 06/05/2018 22:09:00 Aborted Ocuvite-Lutein Capsule 1 capsule Capsule Oral Give 1 capsule by mouth one time a day for supplement 05/22/2018 8:00:00 06/05/2018 22:09:00 Aborted Lisinopril Tablet 20 MG 1 tablet Tablet Oral 1 TAB(S) BY MOUTH DAILY HOLD FOR SBP<110 05/22/2018 8:00:00 06/05/2018 22:09:00 Aborted Cyanocobalamin Tablet 2500 mg Tablet Oral Give 2500 mg by mouth one time a day for supplement 05/22/2018 8:00:00 05/24/2018 14:55:00 Aborted Calcium-D Tablet 600-400 MG-UNIT 1 tablet Tablet Oral Give 1 tablet by mouth two times a day for supplement 05/22/2018 8:00:00 06/05/2018 22:09:00 Aborted HydrALAZINE HCl Tablet 25 MG 1 tablet Tablet Oral 1 TAB(S) BY MOUTH EVERY 8 HOURS HOLD FOR SBP<110 05/22/2018 6:00:00 06/05/2018 22:09:00 Aborted Cyclobenzaprine HCl Tablet 10 MG 1 tablet Tablet Oral 1 TAB(S) BY MOUTH AT BEDTIME NEEDED 05/21/2018 20:30:00 06/05/2018 22:09:00 Aborted FerrouSul Tablet 325 (65 Fe) MG 1 tablet Tablet Oral Give 1 tablet by mouth one time a day for anemia 05/25/2018 9:00:00 06/05/2018 22:09:00 Aborted Folic Acid Tablet 1 MG 1 tablet Tablet Oral Give 1 tablet by mouth one time a day for anemia 05/25/2018 9:00:00 06/05/2018 22:09:00 Aborted Marion Tablet 5-325 MG 1 tablet Tablet Oral Give 1 tablet by mouth every 8 hours as needed for pain 05/24/2018 17:15:00 06/05/2018 22:09:00 Aborted TraZODone HCl ER Tablet Extended Release 24 Hour 1 tablet Tablet Extended Release 24 Hour Oral Give 1 tablet by mouth every 24 hours as needed for insomnia 05/28/2018 22:30:00 05/30/2018 17:00:00 Aborted TraZODone HCl Tablet 25 mg Tablet Oral Give 25 mg by mouth every 24 hours as needed for insomnia 05/30/2018 17:15:00 06/05/2018 22:09:00 Aborted Results Date Test Result Interpretation Reference Range Status Notes Blood sugar 05/21/2018 22:49:00 Blood sugar 147.0 mmol/L 05/25/2018 9:34:00 Blood sugar 113.0 mmol/L 05/25/2018 16:04:54 Blood sugar 159.0 mmol/L 05/26/2018 8:37:12 Blood sugar 112.0 mmol/L 05/26/2018 16:27:27 Blood sugar 215.0 mmol/L 05/27/2018 8:51:00 Blood sugar 117.0 mmol/L 05/27/2018 17:23:25 Blood sugar 142.0 mmol/L 05/28/2018 9:29:43 Blood sugar 135.0 mmol/L 05/28/2018 16:43:52 Blood sugar 122.0 mmol/L 05/29/2018 9:04:05 Blood sugar 116.0 mmol/L 05/29/2018 16:37:49 Blood sugar 139.0 mmol/L 05/30/2018 8:44:14 Blood sugar 118.0 mmol/L 05/30/2018 17:18:27 Blood sugar 113.0 mmol/L 05/31/2018 9:09:51 Blood sugar 122.0 mmol/L 05/31/2018 16:54:55 Blood sugar 148.0 mmol/L 06/01/2018 8:08:19 Blood sugar 114.0 mmol/L 06/01/2018 17:08:51 Blood sugar 129.0 mmol/L 06/02/2018 8:05:19 Blood sugar 114.0 mmol/L 06/02/2018 16:47:46 Blood sugar 140.0 mmol/L 06/03/2018 8:11:17 Blood sugar 106.0 mmol/L 06/03/2018 17:03:01 Blood sugar 118.0 mmol/L 06/04/2018 9:08:10 Blood sugar 103.0 mmol/L 06/04/2018 15:59:08 Blood sugar 146.0 mmol/L 06/05/2018 8:26:22 Blood sugar 125.0 mmol/L 06/05/2018 17:07:15 Blood sugar 178.0 mmol/L Vital signs Description Observation Date BODY TEMPERATURE 97.5 [degF] 05/21/2018 22:49:00 HEART BEAT 74.0 {beats}/min 05/21/2018 22:49:00 RESPIRATION RATE 16.0 /min 05/21/2018 22:49:00 INTRAVASCULAR SYSTOLIC 125.0 mm[Hg] 05/21/2018 22:49:00 INTRAVASCULAR DIASTOLIC 60.0 mm[Hg] 05/21/2018 22:49:00 OXYGEN SATURATION 96.0 % 05/21/2018 22:49:00 PAIN LEVEL 5.0 {score} 05/22/2018 0:43:00 BODY TEMPERATURE 98.5 [degF] 05/22/2018 2:05:00 HEART BEAT 78.0 {beats}/min 05/22/2018 2:05:00 RESPIRATION RATE 16.0 /min 05/22/2018 2:05:00 INTRAVASCULAR SYSTOLIC 129.0 mm[Hg] 05/22/2018 2:05:00 INTRAVASCULAR DIASTOLIC 62.0 mm[Hg] 05/22/2018 2:05:00 PAIN LEVEL 1.0 {score} 05/22/2018 3:03:00 INTRAVASCULAR SYSTOLIC 114.0 mm[Hg] 05/22/2018 6:32:00 INTRAVASCULAR DIASTOLIC 54.0 mm[Hg] 05/22/2018 6:32:00 HEART BEAT 75.0 {beats}/min 05/22/2018 6:32:00 PAIN LEVEL 3.0 {score} 05/22/2018 9:17:16 INTRAVASCULAR SYSTOLIC 106.0 mm[Hg] 05/22/2018 9:21:43 INTRAVASCULAR DIASTOLIC 69.0 mm[Hg] 05/22/2018 9:21:43 PAIN LEVEL 0.0 {score} 05/22/2018 10:51:46 BODY WEIGHT (MEASURED) 129.0 [lb_av] 05/22/2018 14:35:40 INTRAVASCULAR SYSTOLIC 121.0 mm[Hg] 05/22/2018 14:48:23 INTRAVASCULAR DIASTOLIC 67.0 mm[Hg] 05/22/2018 14:48:23 INTRAVASCULAR SYSTOLIC 125.0 mm[Hg] 05/22/2018 21:00:13 INTRAVASCULAR DIASTOLIC 57.0 mm[Hg] 05/22/2018 21:00:13 PAIN LEVEL 5.0 {score} 05/22/2018 21:22:58 PAIN LEVEL 0.0 {score} 05/22/2018 23:56:21 BODY TEMPERATURE 98.2 [degF] 05/23/2018 1:27:00 HEART BEAT 79.0 {beats}/min 05/23/2018 1:27:00 RESPIRATION RATE 16.0 /min 05/23/2018 1:27:00 INTRAVASCULAR SYSTOLIC 118.0 mm[Hg] 05/23/2018 1:27:00 INTRAVASCULAR DIASTOLIC 58.0 mm[Hg] 05/23/2018 1:27:00 INTRAVASCULAR SYSTOLIC 114.0 mm[Hg] 05/23/2018 5:55:25 INTRAVASCULAR DIASTOLIC 61.0 mm[Hg] 05/23/2018 5:55:25 INTRAVASCULAR SYSTOLIC 129.0 mm[Hg] 05/23/2018 10:04:06 INTRAVASCULAR DIASTOLIC 76.0 mm[Hg] 05/23/2018 10:04:06 INTRAVASCULAR SYSTOLIC 130.0 mm[Hg] 05/23/2018 14:17:44 INTRAVASCULAR DIASTOLIC 59.0 mm[Hg] 05/23/2018 14:17:44 BODY TEMPERATURE 97.5 [degF] 05/23/2018 18:16:00 PAIN LEVEL 6.0 {score} 05/23/2018 20:14:54 INTRAVASCULAR SYSTOLIC 135.0 mm[Hg] 05/23/2018 21:16:26 INTRAVASCULAR DIASTOLIC 62.0 mm[Hg] 05/23/2018 21:16:26 PAIN LEVEL 1.0 {score} 05/23/2018 21:17:02 BODY TEMPERATURE 98.0 [degF] 05/24/2018 0:01:00 HEART BEAT 83.0 {beats}/min 05/24/2018 0:01:00 RESPIRATION RATE 18.0 /min 05/24/2018 0:01:00 INTRAVASCULAR SYSTOLIC 144.0 mm[Hg] 05/24/2018 0:01:00 INTRAVASCULAR DIASTOLIC 81.0 mm[Hg] 05/24/2018 0:01:00 INTRAVASCULAR SYSTOLIC 118.0 mm[Hg] 05/24/2018 5:24:05 INTRAVASCULAR DIASTOLIC 64.0 mm[Hg] 05/24/2018 5:24:05 INTRAVASCULAR SYSTOLIC 125.0 mm[Hg] 05/24/2018 9:32:27 INTRAVASCULAR DIASTOLIC 77.0 mm[Hg] 05/24/2018 9:32:27 INTRAVASCULAR SYSTOLIC 124.0 mm[Hg] 05/24/2018 14:56:32 INTRAVASCULAR DIASTOLIC 58.0 mm[Hg] 05/24/2018 14:56:32 PAIN LEVEL 5.0 {score} 05/24/2018 15:43:28 PAIN LEVEL 7.0 {score} 05/24/2018 16:15:00 BODY HEIGHT (MEASURED) 59.0 [in_i] 05/24/2018 16:52:00 PAIN LEVEL 0.0 {score} 05/24/2018 17:27:31 BODY TEMPERATURE 97.8 [degF] 05/24/2018 17:40:00 INTRAVASCULAR SYSTOLIC 146.0 mm[Hg] 05/24/2018 21:24:20 INTRAVASCULAR DIASTOLIC 68.0 mm[Hg] 05/24/2018 21:24:20 PAIN LEVEL 5.0 {score} 05/25/2018 0:26:00 BODY TEMPERATURE 97.3 [degF] 05/25/2018 0:42:00 HEART BEAT 74.0 {beats}/min 05/25/2018 0:42:00 RESPIRATION RATE 18.0 /min 05/25/2018 0:42:00 INTRAVASCULAR SYSTOLIC 140.0 mm[Hg] 05/25/2018 0:42:00 INTRAVASCULAR DIASTOLIC 77.0 mm[Hg] 05/25/2018 0:42:00 PAIN LEVEL 0.0 {score} 05/25/2018 3:09:00 INTRAVASCULAR SYSTOLIC 108.0 mm[Hg] 05/25/2018 6:09:00 INTRAVASCULAR DIASTOLIC 56.0 mm[Hg] 05/25/2018 6:09:00 INTRAVASCULAR SYSTOLIC 110.0 mm[Hg] 05/25/2018 9:34:49 INTRAVASCULAR DIASTOLIC 52.0 mm[Hg] 05/25/2018 9:34:49 INTRAVASCULAR SYSTOLIC 137.0 mm[Hg] 05/25/2018 14:20:47 INTRAVASCULAR DIASTOLIC 70.0 mm[Hg] 05/25/2018 14:20:47 BODY TEMPERATURE 97.5 [degF] 05/25/2018 16:22:00 PAIN LEVEL 3.0 {score} 05/25/2018 20:33:36 INTRAVASCULAR SYSTOLIC 134.0 mm[Hg] 05/25/2018 21:09:51 INTRAVASCULAR DIASTOLIC 78.0 mm[Hg] 05/25/2018 21:09:51 PAIN LEVEL 1.0 {score} 05/25/2018 22:06:38 BODY TEMPERATURE 97.3 [degF] 05/26/2018 0:37:00 HEART BEAT 74.0 {beats}/min 05/26/2018 0:37:00 RESPIRATION RATE 18.0 /min 05/26/2018 0:37:00 INTRAVASCULAR SYSTOLIC 151.0 mm[Hg] 05/26/2018 0:37:00 INTRAVASCULAR DIASTOLIC 60.0 mm[Hg] 05/26/2018 0:37:00 PAIN LEVEL 6.0 {score} 05/26/2018 1:19:00 PAIN LEVEL 1.0 {score} 05/26/2018 4:18:00 INTRAVASCULAR SYSTOLIC 129.0 mm[Hg] 05/26/2018 6:17:58 INTRAVASCULAR DIASTOLIC 74.0 mm[Hg] 05/26/2018 6:17:58 INTRAVASCULAR SYSTOLIC 119.0 mm[Hg] 05/26/2018 10:12:00 INTRAVASCULAR DIASTOLIC 63.0 mm[Hg] 05/26/2018 10:12:00 HEART BEAT 72.0 {beats}/min 05/26/2018 10:12:00 INTRAVASCULAR SYSTOLIC 129.0 mm[Hg] 05/26/2018 13:30:53 INTRAVASCULAR DIASTOLIC 85.0 mm[Hg] 05/26/2018 13:30:53 PAIN LEVEL 6.0 {score} 05/26/2018 17:14:59 PAIN LEVEL 1.0 {score} 05/26/2018 19:28:43 INTRAVASCULAR SYSTOLIC 128.0 mm[Hg] 05/26/2018 21:16:52 INTRAVASCULAR DIASTOLIC 83.0 mm[Hg] 05/26/2018 21:16:52 BODY TEMPERATURE 98.0 [degF] 05/27/2018 1:01:00 HEART BEAT 71.0 {beats}/min 05/27/2018 1:01:00 RESPIRATION RATE 18.0 /min 05/27/2018 1:01:00 INTRAVASCULAR SYSTOLIC 132.0 mm[Hg] 05/27/2018 1:01:00 INTRAVASCULAR DIASTOLIC 70.0 mm[Hg] 05/27/2018 1:01:00 PAIN LEVEL 8.0 {score} 05/27/2018 2:17:29 INTRAVASCULAR SYSTOLIC 135.0 mm[Hg] 05/27/2018 5:49:22 INTRAVASCULAR DIASTOLIC 53.0 mm[Hg] 05/27/2018 5:49:22 PAIN LEVEL 2.0 {score} 05/27/2018 5:49:46 PAIN LEVEL 4.0 {score} 05/27/2018 9:36:32 PAIN LEVEL 6.0 {score} 05/27/2018 9:36:49 INTRAVASCULAR SYSTOLIC 104.0 mm[Hg] 05/27/2018 9:41:31 INTRAVASCULAR DIASTOLIC 56.0 mm[Hg] 05/27/2018 9:41:31 PAIN LEVEL 6.0 {score} 05/27/2018 9:50:21 INTRAVASCULAR SYSTOLIC 147.0 mm[Hg] 05/27/2018 13:32:43 INTRAVASCULAR DIASTOLIC 62.0 mm[Hg] 05/27/2018 13:32:43 INTRAVASCULAR SYSTOLIC 139.0 mm[Hg] 05/27/2018 21:18:14 INTRAVASCULAR DIASTOLIC 65.0 mm[Hg] 05/27/2018 21:18:14 PAIN LEVEL 5.0 {score} 05/27/2018 22:48:35 PAIN LEVEL 0.0 {score} 05/27/2018 23:49:54 BODY TEMPERATURE 98.3 [degF] 05/28/2018 0:48:00 HEART BEAT 77.0 {beats}/min 05/28/2018 0:48:00 RESPIRATION RATE 16.0 /min 05/28/2018 0:48:00 INTRAVASCULAR SYSTOLIC 135.0 mm[Hg] 05/28/2018 0:48:00 INTRAVASCULAR DIASTOLIC 61.0 mm[Hg] 05/28/2018 0:48:00 BODY WEIGHT (MEASURED) 126.6 [lb_av] 05/28/2018 1:01:00 INTRAVASCULAR SYSTOLIC 109.0 mm[Hg] 05/28/2018 6:28:20 INTRAVASCULAR DIASTOLIC 56.0 mm[Hg] 05/28/2018 6:28:20 INTRAVASCULAR SYSTOLIC 124.0 mm[Hg] 05/28/2018 11:36:00 INTRAVASCULAR DIASTOLIC 71.0 mm[Hg] 05/28/2018 11:36:00 HEART BEAT 82.0 {beats}/min 05/28/2018 11:36:00 INTRAVASCULAR SYSTOLIC 123.0 mm[Hg] 05/28/2018 13:09:46 INTRAVASCULAR DIASTOLIC 65.0 mm[Hg] 05/28/2018 13:09:46 PAIN LEVEL 5.0 {score} 05/28/2018 13:11:24 PAIN LEVEL 1.0 {score} 05/28/2018 14:57:53 INTRAVASCULAR SYSTOLIC 118.0 mm[Hg] 05/28/2018 21:10:11 INTRAVASCULAR DIASTOLIC 65.0 mm[Hg] 05/28/2018 21:10:11 PAIN LEVEL 8.0 {score} 05/29/2018 0:47:14 BODY TEMPERATURE 98.6 [degF] 05/29/2018 1:02:00 HEART BEAT 72.0 {beats}/min 05/29/2018 1:02:00 RESPIRATION RATE 18.0 /min 05/29/2018 1:02:00 INTRAVASCULAR SYSTOLIC 149.0 mm[Hg] 05/29/2018 1:02:00 INTRAVASCULAR DIASTOLIC 77.0 mm[Hg] 05/29/2018 1:02:00 PAIN LEVEL 2.0 {score} 05/29/2018 1:07:00 INTRAVASCULAR SYSTOLIC 137.0 mm[Hg] 05/29/2018 6:05:34 INTRAVASCULAR DIASTOLIC 62.0 mm[Hg] 05/29/2018 6:05:34 INTRAVASCULAR SYSTOLIC 126.0 mm[Hg] 05/29/2018 8:35:06 INTRAVASCULAR DIASTOLIC 78.0 mm[Hg] 05/29/2018 8:35:06 INTRAVASCULAR SYSTOLIC 104.0 mm[Hg] 05/29/2018 13:17:07 INTRAVASCULAR DIASTOLIC 71.0 mm[Hg] 05/29/2018 13:17:07 PAIN LEVEL 5.0 {score} 05/29/2018 19:01:58 PAIN LEVEL 0.0 {score} 05/29/2018 19:58:00 INTRAVASCULAR SYSTOLIC 121.0 mm[Hg] 05/29/2018 21:13:55 INTRAVASCULAR DIASTOLIC 76.0 mm[Hg] 05/29/2018 21:13:55 BODY TEMPERATURE 98.5 [degF] 05/30/2018 1:28:00 HEART BEAT 71.0 {beats}/min 05/30/2018 1:28:00 RESPIRATION RATE 16.0 /min 05/30/2018 1:28:00 INTRAVASCULAR SYSTOLIC 137.0 mm[Hg] 05/30/2018 1:28:00 INTRAVASCULAR DIASTOLIC 68.0 mm[Hg] 05/30/2018 1:28:00 INTRAVASCULAR SYSTOLIC 132.0 mm[Hg] 05/30/2018 5:39:50 INTRAVASCULAR DIASTOLIC 73.0 mm[Hg] 05/30/2018 5:39:50 INTRAVASCULAR SYSTOLIC 113.0 mm[Hg] 05/30/2018 11:36:00 INTRAVASCULAR DIASTOLIC 62.0 mm[Hg] 05/30/2018 11:36:00 HEART BEAT 81.0 {beats}/min 05/30/2018 11:36:00 INTRAVASCULAR SYSTOLIC 114.0 mm[Hg] 05/30/2018 14:01:04 INTRAVASCULAR DIASTOLIC 67.0 mm[Hg] 05/30/2018 14:01:04 PAIN LEVEL 7.0 {score} 05/30/2018 19:48:40 INTRAVASCULAR SYSTOLIC 166.0 mm[Hg] 05/30/2018 21:31:46 INTRAVASCULAR DIASTOLIC 74.0 mm[Hg] 05/30/2018 21:31:46 PAIN LEVEL 3.0 {score} 05/30/2018 21:32:05 BODY TEMPERATURE 97.4 [degF] 05/31/2018 1:20:00 HEART BEAT 81.0 {beats}/min 05/31/2018 1:20:00 RESPIRATION RATE 18.0 /min 05/31/2018 1:20:00 INTRAVASCULAR SYSTOLIC 149.0 mm[Hg] 05/31/2018 1:20:00 INTRAVASCULAR DIASTOLIC 65.0 mm[Hg] 05/31/2018 1:20:00 INTRAVASCULAR SYSTOLIC 108.0 mm[Hg] 05/31/2018 5:41:21 INTRAVASCULAR DIASTOLIC 56.0 mm[Hg] 05/31/2018 5:41:21 PAIN LEVEL 5.0 {score} 05/31/2018 9:42:55 INTRAVASCULAR SYSTOLIC 146.0 mm[Hg] 05/31/2018 10:10:00 INTRAVASCULAR DIASTOLIC 74.0 mm[Hg] 05/31/2018 10:10:00 PAIN LEVEL 3.0 {score} 05/31/2018 12:25:04 PAIN LEVEL 3.0 {score} 05/31/2018 14:13:13 INTRAVASCULAR SYSTOLIC 128.0 mm[Hg] 05/31/2018 14:13:32 INTRAVASCULAR DIASTOLIC 75.0 mm[Hg] 05/31/2018 14:13:32 INTRAVASCULAR SYSTOLIC 154.0 mm[Hg] 05/31/2018 21:18:34 INTRAVASCULAR DIASTOLIC 75.0 mm[Hg] 05/31/2018 21:18:34 PAIN LEVEL 5.0 {score} 05/31/2018 21:55:53 PAIN LEVEL 0.0 {score} 05/31/2018 23:23:00 BODY TEMPERATURE 98.6 [degF] 06/01/2018 2:11:00 HEART BEAT 76.0 {beats}/min 06/01/2018 2:11:00 RESPIRATION RATE 18.0 /min 06/01/2018 2:11:00 INTRAVASCULAR SYSTOLIC 128.0 mm[Hg] 06/01/2018 2:11:00 INTRAVASCULAR DIASTOLIC 63.0 mm[Hg] 06/01/2018 2:11:00 INTRAVASCULAR SYSTOLIC 111.0 mm[Hg] 06/01/2018 6:01:49 INTRAVASCULAR DIASTOLIC 60.0 mm[Hg] 06/01/2018 6:01:49 INTRAVASCULAR SYSTOLIC 149.0 mm[Hg] 06/01/2018 10:44:00 INTRAVASCULAR DIASTOLIC 77.0 mm[Hg] 06/01/2018 10:44:00 HEART BEAT 82.0 {beats}/min 06/01/2018 10:44:00 PAIN LEVEL 5.0 {score} 06/01/2018 12:06:55 INTRAVASCULAR SYSTOLIC 123.0 mm[Hg] 06/01/2018 14:31:21 INTRAVASCULAR DIASTOLIC 69.0 mm[Hg] 06/01/2018 14:31:21 PAIN LEVEL 0.0 {score} 06/01/2018 14:31:56 PAIN LEVEL 4.0 {score} 06/01/2018 17:23:21 PAIN LEVEL 7.0 {score} 06/01/2018 20:43:55 INTRAVASCULAR SYSTOLIC 120.0 mm[Hg] 06/01/2018 21:11:09 INTRAVASCULAR DIASTOLIC 62.0 mm[Hg] 06/01/2018 21:11:09 BODY TEMPERATURE 97.5 [degF] 06/01/2018 22:22:00 PAIN LEVEL 0.0 {score} 06/02/2018 1:17:23 BODY TEMPERATURE 98.9 [degF] 06/02/2018 1:27:00 HEART BEAT 73.0 {beats}/min 06/02/2018 1:27:00 RESPIRATION RATE 16.0 /min 06/02/2018 1:27:00 INTRAVASCULAR SYSTOLIC 108.0 mm[Hg] 06/02/2018 1:27:00 INTRAVASCULAR DIASTOLIC 53.0 mm[Hg] 06/02/2018 1:27:00 INTRAVASCULAR SYSTOLIC 121.0 mm[Hg] 06/02/2018 6:38:24 INTRAVASCULAR DIASTOLIC 66.0 mm[Hg] 06/02/2018 6:38:24 INTRAVASCULAR SYSTOLIC 165.0 mm[Hg] 06/02/2018 11:39:00 INTRAVASCULAR DIASTOLIC 77.0 mm[Hg] 06/02/2018 11:39:00 HEART BEAT 83.0 {beats}/min 06/02/2018 11:39:00 INTRAVASCULAR SYSTOLIC 126.0 mm[Hg] 06/02/2018 14:34:22 INTRAVASCULAR DIASTOLIC 76.0 mm[Hg] 06/02/2018 14:34:22 BODY TEMPERATURE 98.1 [degF] 06/02/2018 17:50:00 PAIN LEVEL 6.0 {score} 06/02/2018 19:56:37 INTRAVASCULAR SYSTOLIC 130.0 mm[Hg] 06/02/2018 21:24:56 INTRAVASCULAR DIASTOLIC 62.0 mm[Hg] 06/02/2018 21:24:56 PAIN LEVEL 3.0 {score} 06/02/2018 22:02:23 BODY TEMPERATURE 98.8 [degF] 06/03/2018 1:09:00 HEART BEAT 74.0 {beats}/min 06/03/2018 1:09:00 RESPIRATION RATE 18.0 /min 06/03/2018 1:09:00 INTRAVASCULAR SYSTOLIC 118.0 mm[Hg] 06/03/2018 1:09:00 INTRAVASCULAR DIASTOLIC 58.0 mm[Hg] 06/03/2018 1:09:00 INTRAVASCULAR SYSTOLIC 117.0 mm[Hg] 06/03/2018 6:34:08 INTRAVASCULAR DIASTOLIC 64.0 mm[Hg] 06/03/2018 6:34:08 INTRAVASCULAR SYSTOLIC 121.0 mm[Hg] 06/03/2018 11:57:00 INTRAVASCULAR DIASTOLIC 67.0 mm[Hg] 06/03/2018 11:57:00 HEART BEAT 79.0 {beats}/min 06/03/2018 11:57:00 PAIN LEVEL 1.0 {score} 06/03/2018 11:58:08 INTRAVASCULAR SYSTOLIC 120.0 mm[Hg] 06/03/2018 14:32:34 INTRAVASCULAR DIASTOLIC 66.0 mm[Hg] 06/03/2018 14:32:34 BODY WEIGHT (MEASURED) 126.4 [lb_av] 06/03/2018 16:04:00 PAIN LEVEL 5.0 {score} 06/03/2018 19:01:07 PAIN LEVEL 1.0 {score} 06/03/2018 19:44:39 INTRAVASCULAR SYSTOLIC 133.0 mm[Hg] 06/03/2018 21:16:58 INTRAVASCULAR DIASTOLIC 71.0 mm[Hg] 06/03/2018 21:16:58 BODY TEMPERATURE 97.2 [degF] 06/04/2018 0:43:00 HEART BEAT 77.0 {beats}/min 06/04/2018 0:43:00 RESPIRATION RATE 18.0 /min 06/04/2018 0:43:00 INTRAVASCULAR SYSTOLIC 166.0 mm[Hg] 06/04/2018 0:43:00 INTRAVASCULAR DIASTOLIC 73.0 mm[Hg] 06/04/2018 0:43:00 INTRAVASCULAR SYSTOLIC 117.0 mm[Hg] 06/04/2018 5:19:33 INTRAVASCULAR DIASTOLIC 65.0 mm[Hg] 06/04/2018 5:19:33 INTRAVASCULAR SYSTOLIC 123.0 mm[Hg] 06/04/2018 12:04:00 INTRAVASCULAR DIASTOLIC 71.0 mm[Hg] 06/04/2018 12:04:00 HEART BEAT 85.0 {beats}/min 06/04/2018 12:04:00 INTRAVASCULAR SYSTOLIC 138.0 mm[Hg] 06/04/2018 13:36:48 INTRAVASCULAR DIASTOLIC 78.0 mm[Hg] 06/04/2018 13:36:48 PAIN LEVEL 4.0 {score} 06/04/2018 18:23:55 PAIN LEVEL 4.0 {score} 06/04/2018 20:07:17 INTRAVASCULAR SYSTOLIC 133.0 mm[Hg] 06/04/2018 20:09:00 INTRAVASCULAR DIASTOLIC 71.0 mm[Hg] 06/04/2018 20:09:00 HEART BEAT 86.0 {beats}/min 06/04/2018 20:09:00 PAIN LEVEL 1.0 {score} 06/04/2018 21:48:31 BODY TEMPERATURE 97.6 [degF] 06/05/2018 0:40:00 HEART BEAT 82.0 {beats}/min 06/05/2018 0:40:00 RESPIRATION RATE 18.0 /min 06/05/2018 0:40:00 INTRAVASCULAR SYSTOLIC 164.0 mm[Hg] 06/05/2018 0:40:00 INTRAVASCULAR DIASTOLIC 70.0 mm[Hg] 06/05/2018 0:40:00 INTRAVASCULAR SYSTOLIC 122.0 mm[Hg] 06/05/2018 5:31:41 INTRAVASCULAR DIASTOLIC 67.0 mm[Hg] 06/05/2018 5:31:41 INTRAVASCULAR SYSTOLIC 131.0 mm[Hg] 06/05/2018 8:23:00 INTRAVASCULAR DIASTOLIC 81.0 mm[Hg] 06/05/2018 8:23:00 HEART BEAT 88.0 {beats}/min 06/05/2018 8:23:00 PAIN LEVEL 6.0 {score} 06/05/2018 12:04:00 INTRAVASCULAR SYSTOLIC 125.0 mm[Hg] 06/05/2018 13:14:39 INTRAVASCULAR DIASTOLIC 64.0 mm[Hg] 06/05/2018 13:14:39 PAIN LEVEL 7.0 {score} 06/05/2018 17:26:41 PAIN LEVEL 3.0 {score} 06/05/2018 20:13:02 Immunizations Vaccine Date Status Reason Influenza, seasonal, injectable 05/27/2018 Refused Resident Refused pneumococcal polysaccharide vaccine, 23 valent 05/27/2018 Refused Resident Refused tuberculin skin test; purified protein derivative solution, intradermal 05/21/2018 21:30:00 Completed Social History Smoking Status Start Date End Date Unknown if ever smoked 06/05/2018 23:31:31
[2018-11-19] MEDS ORDERED: LIDOCAINE HCL 1% LOCAL INJ 20 ML VIAL INJ ONE (15:30)
[2018-11-19] MEDS ORDERED: NEOMYCIN/POLYMYX/BACITR OINT 0.9 GM PKT TOP ONE (15:30)
[2018-11-19] MEDS ORDERED: TETANUS/DIPHTHERIA TOX ADULT 0.5 ML SYR IM ONE (15:30)
[2018-11-19 16:17] VITALS: BP 128/55
== END 2018-11-19 16:30 | disposition home or self-care (01) ==
LOC: ER 13:57
DX: S61.452A Open bite of left hand, initial encounter (principal); S61.052A Open bite of left thumb without damage to nail, initial encounter; I10 Essential (primary) hypertension; K21.9 Gastro-esophageal reflux disease without esophagitis; Z85.3 Personal history of malignant neoplasm of breast; M81.0 Age-related osteoporosis without current pathological fracture; M19.90 Unspecified osteoarthritis, unspecified site; Z23 Encounter for immunization; W54.0XXA Bitten by dog, initial encounter; Y92.009 Unspecified place in unspecified non-institutional (private) residence as the place of occurrence of the external cause
CPT/HCPCS: 12002; 90471; 90714; 99283; J2001

== ENCOUNTER 2021-10-07 14:48 | Emergency (ER) | payer OTHER ==
[~2021-10-07] VITALS: Ht 149.9 cm; Wt 61.7 kg
[2021-10-07] MEDS ORDERED: HYDROCODONE/APAP 5MG-325MG TAB PO ONE (18:00)
[2021-10-07 18:29] VITALS: BP 124/72
== END 2021-10-07 18:32 | disposition home or self-care (01) ==
LOC: ER 15:10
DX: S20.212A Contusion of left front wall of thorax, initial encounter (principal); W01.0XXA Fall on same level from slipping, tripping and stumbling without subsequent striking against object, initial encounter; Y93.01 Activity, walking, marching and hiking; Y92.008 Other place in unspecified non-institutional (private) residence as the place of occurrence of the external cause; I10 Essential (primary) hypertension; I48.91 Unspecified atrial fibrillation; K21.9 Gastro-esophageal reflux disease without esophagitis; Z85.3 Personal history of malignant neoplasm of breast; Z86.73 Personal history of transient ischemic attack (TIA), and cerebral infarction without residual deficits
CPT/HCPCS: 70450; 71250; 99283

== ENCOUNTER 2021-12-19 15:45 | Emergency (ER) | payer MEDICARE, OTHER ==
[~2021-12-19] VITALS: Ht 149.9 cm; Wt 61.7 kg
== END 2021-12-19 17:45 | disposition home or self-care (01) ==
LOC: ER 16:00
DX: S00.83XA Contusion of other part of head, initial encounter (principal); S60.221A Contusion of right hand, initial encounter; S50.312A Abrasion of left elbow, initial encounter; W01.0XXA Fall on same level from slipping, tripping and stumbling without subsequent striking against object, initial encounter; Y93.01 Activity, walking, marching and hiking; Y92.89 Other specified places as the place of occurrence of the external cause; I10 Essential (primary) hypertension; K21.9 Gastro-esophageal reflux disease without esophagitis; I48.91 Unspecified atrial fibrillation; Z85.3 Personal history of malignant neoplasm of breast
CPT/HCPCS: 70450; 72125; 99282

== ENCOUNTER 2022-05-11 20:16 | Emergency (ER) | payer MEDICARE ==
[~2022-05-11] VITALS: Ht 149.9 cm; Wt 61.7 kg
[2022-05-11 21:09] LABS: BASOPHILS # (AUTO) 0.1 (0.0-0.1); BASOPHILS % 0.6 % (0.0-1.0); EOSINOPHILS # (AUTO) 0.2 (0.0-0.4); EOSINOPHILS % 2.7 % (0.0-6.0); HEMATOCRIT 34.3 % (34.2-44.1); HEMOGLOBIN 9.8 g/dL (12.0-16.0); LYMPHOCYTES # (AUTO) 1.3 (1.0-3.2); LYMPHOCYTES % 15.4 % (18.0-39.1); MEAN CORPUSCULAR HGB CONC 28.6 g/dL (31-35); MEAN CORPUSCULAR VOLUME 94.5 fL (81-99); MONOCYTES # (AUTO) 0.6 (0.2-0.8); MONOCYTES % 7.3 % (4.4-11.3); NEUTROPHILS # (AUTO) 6.2 (2.1-6.9); NEUTROPHILS % 73.8 % (38.7-80.0); PLATELET COUNT 204 x10e3/uL (140-360); RED BLOOD COUNT 3.63 x10e6/uL (3.6-5.1); RED CELL DISTRIBUTION WIDTH 17.8 % (11.7-14.4)
[2022-05-11 21:25] LABS: CLARITY,URINE CLEAR (CLEAR); COLOR,URINE YELLOW (YELLOW); KETONES,URINE TRACE (NEGATIVE); LEUKOCYTE ESTERASE ,URINE TRACE (NEGATIVE); NITRITE,URINE NEGATIVE (NEGATIVE); PROTEIN,URINE DIPSTICK NEGATIVE (NEGATIVE); URINE UROBILINOGEN 0.2 mg/dL (0.2 - 1)
[2022-05-11 21:29] LABS: ALBUMIN 3.5 g/dL (3.5-5.0); ALBUMIN/GLOBULIN RATIO 0.9 (0.8-2.0); ALKALINE PHOSPHATASE 82 IU/L (40-150); ANION GAP 15.6 mmol/L (8-16); BLOOD UREA NITROGEN 23 mg/dL (7-26); BUN/CREATININE RATIO 27 (6-25); CALCIUM 8.8 mg/dL (8.4-10.2); CARBON DIOXIDE 29 mmol/L (22-29); CHLORIDE 104 mmol/L (98-107); CREATINE KINASE 121 IU/L (29-168); CREATININE, SERUM 0.85 mg/dL (0.57-1.11); GLUCOSE 96 mg/dL (74-118); POTASSIUM 4.6 mmol/L (3.5-5.1); SODIUM 144 mmol/L (136-145)
[2022-05-11 21:33] LABS: BACTERIA,URINE RARE /HPF; EPITHELIAL CELLS,URINE FEW /LPF; HYALINE CASTS 0-1 (0-1)
[2022-05-11 21:34] LABS: MUCUS,URINE FEW (RARE)
[2022-05-11 21:42] LABS: ALANINE AMINOTRANSFERASE < 6 IU/L (0-55)
[2022-05-11] MEDS ORDERED: DOXYCYCLINE HY100 MG PO (22:44)
[2022-05-11] MEDS ORDERED: DOXYCYCLINE HYCLATE TABLET 100 MG TAB PO ONE (22:45)
[2022-05-11] MEDS ORDERED: DOXYCYCLINE HYCLATE TABLET 100 MG TAB ONE (22:56)
== END 2022-05-11 23:00 | disposition home or self-care (01) ==
LOC: ER 20:30
DX: R05.9 Cough, unspecified (principal); J18.9 Pneumonia, unspecified organism; I10 Essential (primary) hypertension; I48.91 Unspecified atrial fibrillation; K21.9 Gastro-esophageal reflux disease without esophagitis; Z20.822 Contact with and (suspected) exposure to COVID-19; R94.31 Abnormal electrocardiogram [ECG] [EKG]; Z86.73 Personal history of transient ischemic attack (TIA), and cerebral infarction without residual deficits; Z85.3 Personal history of malignant neoplasm of breast
CPT/HCPCS: 36415; 71045; 80053; 81001; 82550; 82553; 84484; 85025; 87400; 93005; 99284; U0002

== ENCOUNTER 2022-05-13 20:32 | Emergency (ER) | payer MEDICARE ==
[~2022-05-13] VITALS: Ht 149.9 cm; Wt 59.0 kg
[~2022-05-13 20:32] MED LIST changes: +DOXYCYCLINE HY100 MG PO
[2022-05-13 21:35] LABS: CREATINE KINASE MB 1.9 ng/mL (0-5.0)
[2022-05-13 22:21] VITALS: BP 177/77
== END 2022-05-13 22:22 | disposition home or self-care (01) ==
LOC: ER 20:37
DX: M54.6 Pain in thoracic spine (principal); J18.9 Pneumonia, unspecified organism; I10 Essential (primary) hypertension; I48.91 Unspecified atrial fibrillation; M81.0 Age-related osteoporosis without current pathological fracture; R94.31 Abnormal electrocardiogram [ECG] [EKG]; Z85.3 Personal history of malignant neoplasm of breast
CPT/HCPCS: 36415; 82550; 82553; 84484; 93005; 99283

== ENCOUNTER 2022-09-18 14:50 | Emergency (ER) | payer MEDICARE ==
[~2022-09-18] VITALS: Ht 149.9 cm; Wt 59.0 kg
[2022-09-18 15:44] LABS: CLARITY,URINE TURBID (CLEAR); COLOR,URINE YELLOW (YELLOW); LEUKOCYTE ESTERASE ,URINE LARGE (NEGATIVE)
[2022-09-18 15:45] LABS: KETONES,URINE NEGATIVE (NEGATIVE); NITRITE,URINE POSITIVE (NEGATIVE); PROTEIN,URINE DIPSTICK 2+ (NEGATIVE); URINE UROBILINOGEN 0.2 mg/dL (0.2 - 1)
[2022-09-18 15:46] LABS: BASOPHILS # (AUTO) 0.1 (0.0-0.1); BASOPHILS % 0.6 % (0.0-1.0); EOSINOPHILS # (AUTO) 0.2 (0.0-0.4); EOSINOPHILS % 1.7 % (0.0-6.0); HEMATOCRIT 33.9 % (34.2-44.1); HEMOGLOBIN 10.1 g/dL (12.0-16.0); LYMPHOCYTES # (AUTO) 1.4 (1.0-3.2); LYMPHOCYTES % 12.8 % (18.0-39.1); MEAN CORPUSCULAR HEMOGLOBIN 27.2 pg (28-32); MEAN CORPUSCULAR HGB CONC 29.8 g/dL (31-35); MEAN CORPUSCULAR VOLUME 91.4 fL (81-99); MONOCYTES # (AUTO) 0.9 (0.2-0.8); MONOCYTES % 7.8 % (4.4-11.3); NEUTROPHILS # (AUTO) 8.3 (2.1-6.9); NEUTROPHILS % 76.6 % (38.7-80.0); PLATELET COUNT 191 x10e3/uL (140-360); RED BLOOD COUNT 3.71 x10e6/uL (3.6-5.1); RED CELL DISTRIBUTION WIDTH 15.4 % (11.7-14.4)
[2022-09-18 16:01] LABS: ALANINE AMINOTRANSFERASE < 6 IU/L (0-55); ALBUMIN 3.4 g/dL (3.5-5.0); ALBUMIN/GLOBULIN RATIO 0.9 (0.8-2.0); ALKALINE PHOSPHATASE 89 IU/L (40-150); ANION GAP 13.3 mmol/L (8-16); BLOOD UREA NITROGEN 21 mg/dL (7-26); BUN/CREATININE RATIO 24 (6-25); CARBON DIOXIDE 30 mmol/L (22-29); CHLORIDE 103 mmol/L (98-107); CREATINE KINASE 107 IU/L (29-168); CREATININE, SERUM 0.86 mg/dL (0.57-1.11); GLUCOSE 118 mg/dL (74-118); LIPASE < 4 U/L (8-78); POTASSIUM 4.3 mmol/L (3.5-5.1); SODIUM 142 mmol/L (136-145)
[2022-09-18 16:01] LABS: BACTERIA,URINE MANY /HPF; WBC,URINE (MAN) >50 /HPF (0-5)
[2022-09-18] MEDS ORDERED: CEFDINIR300 MG PO (16:31)
[2022-09-18] MEDS ORDERED: CEFTRIAXONE 1 GM VIAL ONE (16:48)
[2022-09-18] MEDS ORDERED: SODIUM CHLORIDE 0.9% 250ML 250 ML ONE (16:48)
== END 2022-09-18 17:21 | disposition home or self-care (01) ==
LOC: ER 14:58
DX: R30.0 Dysuria (principal); N39.0 Urinary tract infection, site not specified; R35.0 Frequency of micturition; R94.31 Abnormal electrocardiogram [ECG] [EKG]
CPT/HCPCS: 36415; 71045; 80053; 81001; 82550; 82553; 83690; 84484; 85025; 87086; 87186; 93005; 99285; J0696; J7050

== ENCOUNTER 2022-10-18 15:50 | Emergency (ER) | payer MEDICARE ==
[~2022-10-18] VITALS: Ht 149.9 cm; Wt 59.0 kg
[~2022-10-18 15:50] MED LIST changes: +CEFDINIR300 MG PO
[2022-10-18 16:22] LABS: BASOPHILS # (AUTO) 0.1 (0.0-0.1); BASOPHILS % 0.6 % (0.0-1.0); EOSINOPHILS # (AUTO) 0.2 (0.0-0.4); EOSINOPHILS % 1.9 % (0.0-6.0); HEMATOCRIT 36.9 % (34.2-44.1); HEMOGLOBIN 10.8 g/dL (12.0-16.0); LYMPHOCYTES # (AUTO) 1.2 (1.0-3.2); LYMPHOCYTES % 13.7 % (18.0-39.1); MEAN CORPUSCULAR HEMOGLOBIN 26.9 pg (28-32); MEAN CORPUSCULAR HGB CONC 29.3 g/dL (31-35); MEAN CORPUSCULAR VOLUME 91.8 fL (81-99); MONOCYTES # (AUTO) 0.6 (0.2-0.8); MONOCYTES % 7.3 % (4.4-11.3); NEUTROPHILS # (AUTO) 6.7 (2.1-6.9); NEUTROPHILS % 76.2 % (38.7-80.0); PLATELET COUNT 193 x10e3/uL (140-360); RED BLOOD COUNT 4.02 x10e6/uL (3.6-5.1); RED CELL DISTRIBUTION WIDTH 15.5 % (11.7-14.4)
[2022-10-18 16:29] LABS: INR 0.97; PROTHROMBIN TIME 13.4 seconds (11.9-14.5)
[2022-10-18 16:33] LABS: PARTIAL THROMBOPLASTIN TIME 24.3 seconds (23.8-35.5)
[2022-10-18 16:40] LABS: ALBUMIN 3.4 g/dL (3.5-5.0); ALBUMIN/GLOBULIN RATIO 0.9 (0.8-2.0); ALKALINE PHOSPHATASE 87 IU/L (40-150); ANION GAP 18.1 mmol/L (8-16); BLOOD UREA NITROGEN 23 mg/dL (7-26); BUN/CREATININE RATIO 23 (6-25); CARBON DIOXIDE 27 mmol/L (22-29); CHLORIDE 101 mmol/L (98-107); CREATINE KINASE 63 IU/L (29-168); GLUCOSE 124 mg/dL (74-118); POTASSIUM 4.1 mmol/L (3.5-5.1); SODIUM 142 mmol/L (136-145)
[2022-10-18 16:47] LABS: ALANINE AMINOTRANSFERASE < 6 IU/L (0-55)
[2022-10-18 16:48] LABS: CLARITY,URINE CLEAR (CLEAR); COLOR,URINE YELLOW (YELLOW); KETONES,URINE NEGATIVE (NEGATIVE); LEUKOCYTE ESTERASE ,URINE NEGATIVE (NEGATIVE); NITRITE,URINE NEGATIVE (NEGATIVE); PROTEIN,URINE DIPSTICK NEGATIVE (NEGATIVE); URINE UROBILINOGEN 0.2 mg/dL (0.2 - 1)
[2022-10-18 16:49] LABS: BACTERIA,URINE RARE /HPF; EPITHELIAL CELLS,URINE FEW /LPF; RBC,URINE 0-5 /HPF (0-5); WBC,URINE (MAN) 0-5 /HPF (0-5)
[2022-10-18 16:50] LABS: MUCUS,URINE FEW (RARE)
[2022-10-18 18:05] VITALS: BP 144/58
== END 2022-10-18 18:07 | disposition home or self-care (01) ==
LOC: ER 16:02
DX: R06.02 Shortness of breath (principal); J44.9 Chronic obstructive pulmonary disease, unspecified; R53.1 Weakness; G20 Parkinson's disease; F02.80 Dementia in other diseases classified elsewhere, unspecified severity, without behavioral disturbance, psychotic disturbance, mood disturbance, and anxiety; I10 Essential (primary) hypertension; I48.91 Unspecified atrial fibrillation; K21.9 Gastro-esophageal reflux disease without esophagitis; M81.0 Age-related osteoporosis without current pathological fracture; Z20.822 Contact with and (suspected) exposure to COVID-19; R94.31 Abnormal electrocardiogram [ECG] [EKG]; Z86.73 Personal history of transient ischemic attack (TIA), and cerebral infarction without residual deficits; Z85.3 Personal history of malignant neoplasm of breast
CPT/HCPCS: 36415; 71045; 80053; 81001; 82550; 82553; 83735; 83880; 84484; 85025; 85610; 85730; 87086; 93005; 99284; U0002

== ENCOUNTER 2022-11-18 20:18 | Emergency (ER) | payer MEDICARE ==
[~2022-11-18] VITALS: Ht 149.9 cm; Wt 59.0 kg
[2022-11-18 21:13] LABS: CLARITY,URINE CLOUDY (CLEAR); COLOR,URINE YELLOW (YELLOW); KETONES,URINE NEGATIVE (NEGATIVE); LEUKOCYTE ESTERASE ,URINE SMALL (NEGATIVE); NITRITE,URINE POSITIVE (NEGATIVE); PROTEIN,URINE DIPSTICK 2+ (NEGATIVE); URINE UROBILINOGEN 0.2 mg/dL (0.2 - 1)
[2022-11-18 21:24] LABS: BACTERIA,URINE MANY /HPF; EPITHELIAL CELLS,URINE RARE /LPF
[2022-11-18] MEDS ORDERED: CIPRO500 MG PO (22:19)
== END 2022-11-18 22:28 | disposition home or self-care (01) ==
LOC: ER 20:29
DX: R30.0 Dysuria (principal); N39.0 Urinary tract infection, site not specified; R10.30 Lower abdominal pain, unspecified; I10 Essential (primary) hypertension; I48.91 Unspecified atrial fibrillation; K21.9 Gastro-esophageal reflux disease without esophagitis; M81.8 Other osteoporosis without current pathological fracture; Z85.3 Personal history of malignant neoplasm of breast
CPT/HCPCS: 74176; 81001; 87086; 87186; 99282

== ENCOUNTER 2022-11-21 11:36 | Inpatient (IN) | payer MEDICARE ==
[~2022-11-21] VITALS: Ht 149.9 cm; Wt 59.0 kg
[~2022-11-21 11:36] MED LIST changes: +CIPRO500 MG PO
[2022-11-21 12:01] LABS: BASOPHILS # (AUTO) 0.1 (0.0-0.1); BASOPHILS % 0.7 % (0.0-1.0); EOSINOPHILS # (AUTO) 0.4 (0.0-0.4); EOSINOPHILS % 3.7 % (0.0-6.0); HEMATOCRIT 36.8 % (34.2-44.1); HEMOGLOBIN 10.8 g/dL (12.0-16.0); LYMPHOCYTES # (AUTO) 1.5 (1.0-3.2); LYMPHOCYTES % 15.6 % (18.0-39.1); MEAN CORPUSCULAR HEMOGLOBIN 26.5 pg (28-32); MEAN CORPUSCULAR HGB CONC 29.3 g/dL (31-35); MEAN CORPUSCULAR VOLUME 90.2 fL (81-99); MONOCYTES # (AUTO) 0.7 (0.2-0.8); MONOCYTES % 7.6 % (4.4-11.3); NEUTROPHILS # (AUTO) 6.9 (2.1-6.9); NEUTROPHILS % 71.9 % (38.7-80.0); PLATELET COUNT 181 x10e3/uL (140-360); RED BLOOD COUNT 4.08 x10e6/uL (3.6-5.1); RED CELL DISTRIBUTION WIDTH 16.7 % (11.7-14.4)
[2022-11-21] MEDS ORDERED: ONDANSETRON HCL INJ 2MG/ML 2ML 2 MG/ML VIAL IV PRN (12:15)
[2022-11-21] MEDS ORDERED: SODIUM CHLORIDE FLUSH 10 ML SYR INJ PRN (12:15)
[2022-11-21 12:18] LABS: ALBUMIN 3.3 g/dL (3.5-5.0); ALBUMIN/GLOBULIN RATIO 0.8 (0.8-2.0); ALKALINE PHOSPHATASE 76 IU/L (40-150); ANION GAP 14.6 mmol/L (8-16); BLOOD UREA NITROGEN 27 mg/dL (7-26); BUN/CREATININE RATIO 30 (6-25); CALCIUM 9.1 mg/dL (8.4-10.2); CARBON DIOXIDE 30 mmol/L (22-29); CHLORIDE 104 mmol/L (98-107); GLUCOSE 137 mg/dL (74-118); POTASSIUM 4.6 mmol/L (3.5-5.1); SODIUM 144 mmol/L (136-145)
[2022-11-21 12:19] LABS: ALANINE AMINOTRANSFERASE < 6 IU/L (0-55)
[2022-11-21 14:00] VITALS: BP_SYST 107; BP_SYST 155; BP_DIAS 63; BP_DIAS 82
[2022-11-21] MEDS ORDERED: CYMBALTA30 MG PO (15:32)
[2022-11-21] MEDS ORDERED: HYOSCYAMINE0.375 MG SL (15:32)
[2022-11-21] MEDS ORDERED: SINEMET 25/250 PO (15:32)
[2022-11-21] MEDS ORDERED: CRESTOR10 MG PO (15:32)
[2022-11-21] MEDS ORDERED: AMIODARONE HCL200 MG PO (15:32)
[2022-11-21] MEDS ORDERED: GABAPENTIN100 MG PO (15:32)
[2022-11-21] MEDS ORDERED: [UNRECOGNIZED DRUG - OTHER] PO (15:32)
[2022-11-21] MEDS ORDERED: PROTONIX20 MG PO (15:32)
[2022-11-21] MEDS ORDERED: CELEBREX200 MG PO (15:32)
[2022-11-21] MEDS ORDERED: VENLAFAXINE HCL75 MG PO (15:32)
[2022-11-21] MEDS ORDERED: CYCLOBENZAPRINE10 MG PO (15:32)
[2022-11-21] MEDS ORDERED: VESICARE5 MG PO (15:32)
[2022-11-21] MEDS ORDERED: LISINOPRIL10 MG PO (15:32)
[2022-11-21] MEDS ORDERED: LEVOTHYROXINE50 MCG PO (15:32)
[2022-11-21] MEDS ORDERED: ASPIRIN81 MG PO (15:32)
[2022-11-21] MEDS ORDERED: NAMENDA10 MG PO (15:32)
[2022-11-21] MEDS ORDERED: SODIUM CHLORIDE 0.9% 250ML 250 ML ONE ×2 (20:26→20:30)
[2022-11-21 20:38] VITALS: BP 149/68
[2022-11-21 21:00] VITALS: BP 149/68
[2022-11-22] VITALS (8 sets, daily range): BP systolic 138–158; BP diastolic 52–68
[2022-11-22 07:12] LABS: BASOPHILS # (AUTO) 0.1 (0.0-0.1); BASOPHILS % 0.7 % (0.0-1.0); EOSINOPHILS # (AUTO) 0.3 (0.0-0.4); EOSINOPHILS % 4.4 % (0.0-6.0); HEMATOCRIT 31.6 % (34.2-44.1); HEMOGLOBIN 9.7 g/dL (12.0-16.0); LYMPHOCYTES # (AUTO) 1.3 (1.0-3.2); LYMPHOCYTES % 17.9 % (18.0-39.1); MEAN CORPUSCULAR HEMOGLOBIN 26.9 pg (28-32); MEAN CORPUSCULAR HGB CONC 30.7 g/dL (31-35); MEAN CORPUSCULAR VOLUME 87.8 fL (81-99); MONOCYTES # (AUTO) 0.6 (0.2-0.8); MONOCYTES % 8.3 % (4.4-11.3); NEUTROPHILS # (AUTO) 5.1 (2.1-6.9); NEUTROPHILS % 68.3 % (38.7-80.0); PLATELET COUNT 158 x10e3/uL (140-360); RED CELL DISTRIBUTION WIDTH 16.1 % (11.7-14.4)
[2022-11-22 07:30] LABS: ANION GAP 10.8 mmol/L (8-16); CALCIUM 8.4 mg/dL (8.4-10.2); CREATININE, SERUM 0.74 mg/dL (0.57-1.11); POTASSIUM 3.8 mmol/L (3.5-5.1)
[2022-11-22] MEDS ORDERED: ONDANSETRON HCL 4 MG ORAL DISINTEGRATING TAB SL PRN (10:15)
[2022-11-22] MEDS ORDERED: [UNRECOGNIZED DRUG - OTHER] PO PRN (10:15)
[2022-11-22] MEDS ORDERED: HYOSCYAMINE 0.375 MG TABCR SL PRN (10:15)
[2022-11-22] MEDS: AMIODARONE HCL 200 MG TAB PO SCH (13:34)
[2022-11-22] MEDS: DULOXETINE HCL 30 MG DELAYED RELEASE PO SCH (13:38)
[2022-11-22] MEDS: ASPIRIN 81 MG CHEW TAB PO SCH (13:39)
[2022-11-22] MEDS: MEMANTINE 10 MG TAB PO SCH (13:39)
[2022-11-22] MEDS: LISINOPRIL 10 MG TAB PO SCH (13:39)
[2022-11-22] MEDS: PANTOPRAZOLE SOD 40 MG TABEC PO SCH (13:50)
[2022-11-22] MEDS: CARBIDOPA/LEVODOPA 25/250 TAB PO SCH ×2 (13:50→21:06)
[2022-11-22] MEDS ORDERED: HYOSCYAMINE 0.125 MG TAB PO PRN (16:30)
[2022-11-22] MEDS ORDERED: CYCLOBENZAPRINE HCL 10 MG TAB PO SCH (17:00)
[2022-11-22] MEDS ORDERED: GABAPENTIN 100 MG CAP PO SCH (17:00)
[2022-11-22] MEDS: VENLAFAXINE HCL 75 MG TAB PO SCH (17:34)
[2022-11-22] MEDS ORDERED: HYDROCODON-ACE1 EAC9 PO (17:36)
[2022-11-22] MEDS ORDERED: DOCUSATE SODIU100 MG PO (17:36)
[2022-11-22] MEDS: CELECOXIB 200 MG CAP PO SCH (21:05)
[2022-11-22] MEDS: CYCLOBENZAPRINE HCL 10 MG TAB PO PRN (21:06)
[2022-11-22] MEDS: HYDROCODONE/APAP 10MG-325MG TAB PO PRN (21:06)
[2022-11-22] MEDS: GABAPENTIN 100 MG CAP PO SCH (21:06)
[2022-11-23] VITALS (7 sets, daily range): BP systolic 132–179; BP diastolic 49–70
[2022-11-23] MEDS: MEMANTINE 10 MG TAB PO SCH ×2 (09:35→16:56)
[2022-11-23] MEDS: SOLIFENACIN SUCCINATE 5 MG TAB PO SCH (09:35)
[2022-11-23] MEDS: LISINOPRIL 10 MG TAB PO SCH (09:35)
[2022-11-23] MEDS: PANTOPRAZOLE SOD 40 MG TABEC PO SCH ×2 (09:35→16:56)
[2022-11-23] MEDS: VENLAFAXINE HCL 75 MG TAB PO SCH ×2 (09:35→16:56)
[2022-11-23] MEDS: DULOXETINE HCL 30 MG DELAYED RELEASE PO SCH (09:35)
[2022-11-23] MEDS: LEVOTHYROXINE SODIUM 50 MCG TAB PO SCH (09:35)
[2022-11-23] MEDS: CARBIDOPA/LEVODOPA 25/250 TAB PO SCH ×3 (09:35→21:13)
[2022-11-23] MEDS: ASPIRIN 81 MG CHEW TAB PO SCH (09:36)
[2022-11-23] MEDS: AMIODARONE HCL 200 MG TAB PO SCH (09:36)
[2022-11-23] MEDS: HYDROCODONE/APAP 10MG-325MG TAB PO PRN ×2 (16:58→23:44)
[2022-11-23] MEDS: CYCLOBENZAPRINE HCL 10 MG TAB PO PRN (21:13)
[2022-11-23] MEDS: GABAPENTIN 100 MG CAP PO SCH (21:13)
[2022-11-23] MEDS: CELECOXIB 200 MG CAP PO SCH (21:13)
[2022-11-24] VITALS: BP 125/65
[2022-11-24 04:20] VITALS: BP 141/65
[2022-11-24 08:00] VITALS: BP 152/61
[2022-11-24] MEDS: HYDROCODONE/APAP 10MG-325MG TAB PO PRN (09:34)
[2022-11-24] MEDS: DULOXETINE HCL 30 MG DELAYED RELEASE PO SCH (09:35)
[2022-11-24] MEDS: PANTOPRAZOLE SOD 40 MG TABEC PO SCH ×2 (09:36→16:56)
[2022-11-24] MEDS: VENLAFAXINE HCL 75 MG TAB PO SCH ×2 (09:36→16:56)
[2022-11-24] MEDS: AMIODARONE HCL 200 MG TAB PO SCH (09:36)
[2022-11-24] MEDS: LISINOPRIL 10 MG TAB PO SCH (09:36)
[2022-11-24] MEDS: SOLIFENACIN SUCCINATE 5 MG TAB PO SCH (09:36)
[2022-11-24] MEDS: ASPIRIN 81 MG CHEW TAB PO SCH (09:36)
[2022-11-24] MEDS: MEMANTINE 10 MG TAB PO SCH ×2 (09:36→16:56)
[2022-11-24] MEDS: CARBIDOPA/LEVODOPA 25/250 TAB PO SCH ×3 (09:37→20:44)
[2022-11-24] MEDS: LEVOTHYROXINE SODIUM 50 MCG TAB PO SCH (09:40)
[2022-11-24 12:14] VITALS: BP 118/50
[2022-11-24 16:07] VITALS: BP 138/55
[2022-11-24] MEDS: GABAPENTIN 100 MG CAP PO SCH (20:44)
[2022-11-24] MEDS: CELECOXIB 200 MG CAP PO SCH (20:44)
[2022-11-25] MEDS: HYDROCODONE/APAP 10MG-325MG TAB PO PRN ×3 (01:18→14:47)
[2022-11-25 04:54] VITALS: BP 138/55
[2022-11-25 07:53] VITALS: BP 152/61
[2022-11-25] MEDS: LEVOTHYROXINE SODIUM 50 MCG TAB PO SCH (09:12)
[2022-11-25] MEDS: CARBIDOPA/LEVODOPA 25/250 TAB PO SCH ×3 (09:12→21:22)
[2022-11-25] MEDS: AMIODARONE HCL 200 MG TAB PO SCH (09:13)
[2022-11-25] MEDS: VENLAFAXINE HCL 75 MG TAB PO SCH ×2 (09:13→17:06)
[2022-11-25] MEDS: SOLIFENACIN SUCCINATE 5 MG TAB PO SCH (09:13)
[2022-11-25] MEDS: DULOXETINE HCL 30 MG DELAYED RELEASE PO SCH (09:13)
[2022-11-25] MEDS: MEMANTINE 10 MG TAB PO SCH ×2 (09:14→17:06)
[2022-11-25] MEDS: LISINOPRIL 10 MG TAB PO SCH (09:14)
[2022-11-25] MEDS: ASPIRIN 81 MG CHEW TAB PO SCH (09:14)
[2022-11-25] MEDS: PANTOPRAZOLE SOD 40 MG TABEC PO SCH ×2 (09:14→17:07)
[2022-11-25 09:52] VITALS: BP 114/55
[2022-11-25 12:32] VITALS: BP 134/60
[2022-11-25] MEDS ORDERED: BISACODYL 5 MG TAB EC PO PRN (21:00)
[2022-11-25] MEDS: CELECOXIB 200 MG CAP PO SCH (21:22)
[2022-11-25] MEDS: GABAPENTIN 100 MG CAP PO SCH (21:23)
[2022-11-26] VITALS (7 sets, daily range): BP systolic 139–150; BP diastolic 55–71
[2022-11-26] MEDS: HYDROCODONE/APAP 10MG-325MG TAB PO PRN (00:35)
[2022-11-26 08:54] LABS: BASOPHILS # (AUTO) 0.1 (0.0-0.1); BASOPHILS % 0.8 % (0.0-1.0); EOSINOPHILS # (AUTO) 0.4 (0.0-0.4); EOSINOPHILS % 4.7 % (0.0-6.0); HEMATOCRIT 33.6 % (34.2-44.1); HEMOGLOBIN 10.1 g/dL (12.0-16.0); LYMPHOCYTES # (AUTO) 1.5 (1.0-3.2); LYMPHOCYTES % 16.7 % (18.0-39.1); MEAN CORPUSCULAR HEMOGLOBIN 26.9 pg (28-32); MEAN CORPUSCULAR HGB CONC 30.1 g/dL (31-35); MEAN CORPUSCULAR VOLUME 89.6 fL (81-99); MONOCYTES # (AUTO) 0.7 (0.2-0.8); MONOCYTES % 7.7 % (4.4-11.3); NEUTROPHILS # (AUTO) 6.1 (2.1-6.9); NEUTROPHILS % 69.6 % (38.7-80.0); PLATELET COUNT 143 x10e3/uL (140-360); RED BLOOD COUNT 3.75 x10e6/uL (3.6-5.1); RED CELL DISTRIBUTION WIDTH 16.6 % (11.7-14.4)
[2022-11-26] MEDS: SOLIFENACIN SUCCINATE 5 MG TAB PO SCH (09:17)
[2022-11-26] MEDS: MEMANTINE 10 MG TAB PO SCH ×2 (09:17→16:15)
[2022-11-26] MEDS: CARBIDOPA/LEVODOPA 25/250 TAB PO SCH ×3 (09:17→21:21)
[2022-11-26] MEDS: DULOXETINE HCL 30 MG DELAYED RELEASE PO SCH (09:17)
[2022-11-26] MEDS: VENLAFAXINE HCL 75 MG TAB PO SCH ×2 (09:17→16:15)
[2022-11-26] MEDS: ASPIRIN 81 MG CHEW TAB PO SCH (09:18)
[2022-11-26] MEDS: AMIODARONE HCL 200 MG TAB PO SCH (09:18)
[2022-11-26] MEDS: LEVOTHYROXINE SODIUM 50 MCG TAB PO SCH (09:18)
[2022-11-26] MEDS: PANTOPRAZOLE SOD 40 MG TABEC PO SCH ×2 (09:18→16:15)
[2022-11-26 09:19] LABS: ANION GAP 12.2 mmol/L (8-16); CALCIUM 8.5 mg/dL (8.4-10.2); CREATININE, SERUM 0.79 mg/dL (0.57-1.11); POTASSIUM 4.2 mmol/L (3.5-5.1)
[2022-11-26] MEDS: LISINOPRIL 10 MG TAB PO SCH (09:19)
[2022-11-26 14:15] LABS: CLARITY,URINE CLEAR (CLEAR); COLOR,URINE YELLOW (YELLOW); KETONES,URINE NEGATIVE (NEGATIVE); LEUKOCYTE ESTERASE ,URINE NEGATIVE (NEGATIVE); NITRITE,URINE NEGATIVE (NEGATIVE); PROTEIN,URINE DIPSTICK NEGATIVE (NEGATIVE); URINE UROBILINOGEN 0.2 mg/dL (0.2 - 1)
[2022-11-26 14:25] LABS: BACTERIA,URINE MODERATE /HPF; EPITHELIAL CELLS,URINE FEW /LPF; RBC,URINE 0-5 /HPF (0-5)
[2022-11-26 14:26] LABS: MUCUS,URINE FEW (RARE)
[2022-11-26] MEDS: CELECOXIB 200 MG CAP PO SCH (21:20)
[2022-11-26] MEDS: GABAPENTIN 100 MG CAP PO SCH (21:21)
[2022-11-27] VITALS (8 sets, daily range): BP systolic 127–156; BP diastolic 57–80
[2022-11-27] MEDS: CARBIDOPA/LEVODOPA 25/250 TAB PO SCH ×3 (08:44→20:18)
[2022-11-27] MEDS: SOLIFENACIN SUCCINATE 5 MG TAB PO SCH (08:44)
[2022-11-27] MEDS: LEVOTHYROXINE SODIUM 50 MCG TAB PO SCH (08:44)
[2022-11-27] MEDS: VENLAFAXINE HCL 75 MG TAB PO SCH ×2 (08:44→16:24)
[2022-11-27] MEDS: DULOXETINE HCL 30 MG DELAYED RELEASE PO SCH (08:44)
[2022-11-27] MEDS: LISINOPRIL 10 MG TAB PO SCH (08:44)
[2022-11-27] MEDS: PANTOPRAZOLE SOD 40 MG TABEC PO SCH ×2 (08:44→16:24)
[2022-11-27] MEDS: AMIODARONE HCL 200 MG TAB PO SCH (08:44)
[2022-11-27] MEDS: MEMANTINE 10 MG TAB PO SCH ×2 (08:44→16:24)
[2022-11-27] MEDS: ASPIRIN 81 MG CHEW TAB PO SCH (08:46)
[2022-11-27] MEDS: HYDROCODONE/APAP 10MG-325MG TAB PO PRN (11:08)
[2022-11-27] MEDS: GABAPENTIN 100 MG CAP PO SCH (20:18)
[2022-11-27] MEDS: CELECOXIB 200 MG CAP PO SCH (20:18)
[2022-11-28] MEDS: HYDROCODONE/APAP 10MG-325MG TAB PO PRN ×2 (00:10→12:07)
[2022-11-28 00:34] VITALS: BP 140/75
[2022-11-28 04:32] VITALS: BP 143/54
[2022-11-28 08:18] VITALS: BP 117/68
[2022-11-28] MEDS: LEVOTHYROXINE SODIUM 50 MCG TAB PO SCH (08:57)
[2022-11-28] MEDS: CARBIDOPA/LEVODOPA 25/250 TAB PO SCH (08:57)
[2022-11-28] MEDS: PANTOPRAZOLE SOD 40 MG TABEC PO SCH (08:57)
[2022-11-28] MEDS: DULOXETINE HCL 30 MG DELAYED RELEASE PO SCH (08:58)
[2022-11-28] MEDS: AMIODARONE HCL 200 MG TAB PO SCH (08:58)
[2022-11-28] MEDS: MEMANTINE 10 MG TAB PO SCH (08:58)
[2022-11-28] MEDS: ASPIRIN 81 MG CHEW TAB PO SCH (08:59)
[2022-11-28] MEDS: VENLAFAXINE HCL 75 MG TAB PO SCH (08:59)
[2022-11-28] MEDS: SOLIFENACIN SUCCINATE 5 MG TAB PO SCH (08:59)
[2022-11-28] MEDS: LISINOPRIL 10 MG TAB PO SCH (08:59)
[2022-11-28 09:04] VITALS: BP 117/68
[2022-11-28 12:00] VITALS: BP 148/56
== END 2022-11-28 12:30 | disposition home or self-care (01) | DRG 690 ==
LOC: ER 11:41 → ERHOLD 12:19 → MED/SURG2 13:59
PROVIDERS: ADMIT Internal Medicine; ATTEND Internal Medicine
DX: N39.0 Urinary tract infection, site not specified (principal); Z16.24 Resistance to multiple antibiotics; G20 Parkinson's disease; F02.C0 Dementia in other diseases classified elsewhere, severe, without behavioral disturbance, psychotic disturbance, mood disturbance, and anxiety; R33.9 Retention of urine, unspecified; Z99.3 Dependence on wheelchair; Z74.01 Bed confinement status; N31.9 Neuromuscular dysfunction of bladder, unspecified; M51.36 Other intervertebral disc degeneration, lumbar region
CPT/HCPCS: 0223U; 36415; 80048; 80053; 81001; 85025; 87040; 87086; 94799; 99252; 99284; J0692; J7050